=== PATIENT | female | born 1975 | race Caucasian/White ===

== ENCOUNTER → 2016-10-28 | Outpatient (REF) | payer MEDICAID, OTHER ==
[~2016-10-28] MED LIST: ALBU17IN INH; AMOX500T PO; DEPA500T2 PO; NUVAMIS2 VA; ROBISYP3 PO; SERT-138 PO; VENL225T PO
== END ==
LOC: M LAB REF 13:24
PROVIDERS: ATTEND Physician Assistant Medical
DX: Z12.4 Encounter for screening for malignant neoplasm of cervix (principal)

== ENCOUNTER → 2016-11-26 | Outpatient (CLI) | payer MEDICAID ==
--- NOTE | 2016-11-26 15:39 | REPMRS ---
Patient History The patient states she had a clinical breast exam in 10/2016. Patient is nulliparous. Family history of prostate cancer in father at age 50 or over, breast cancer in 2 maternal aunts at age 50 or over, and prostate cancer in paternal uncle at age 50 or over. Taking hormonal contraceptives for 1 month. Digital Woman Screen Mammo: November 26, 2016 - Exam #: [id number] Bilateral CC and MLO view(s) were taken. Technologist: Arpita Carlin, Technologist Prior study comparison: April 08, 2014, bilateral digital mammo screening bilat, performed at [facility], [place]. FINDINGS: The breast tissue is heterogeneously dense. This may lower the sensitivity of mammography. There is a moderate amount of heterogeneously dense fibroglandular tissue which is fairly symmetric. There is no interval development of dominant mass, architectural distortion, or clustered microcalcification typical of malignancy. There has been no change in the appearance of the mammogram from the prior studies. ASSESSMENT: BI-RADS/ACR category 1 mammogram. Negative. Recommendation Routine screening mammogram of both breasts in 1 year (for women over age 40). This mammogram was interpreted with the aid of an FDA-approved computer-aided dectection system. Electronically Signed By: Yovanny Pappas MD 11/26/16 0958
== END ==
LOC: M WHC 08:36
PROVIDERS: ATTEND Physician Assistant Medical
DX: Z12.31 Encounter for screening mammogram for malignant neoplasm of breast (principal); Z92.0 Personal history of contraception

== ENCOUNTER → 2017-05-06 | Outpatient (REF) | payer MEDICAID ==
[2017-05-06 12:37] LABS: BASO % 0.4 % (0.0-1.0); EOS # 0.1 10^3/uL (0.0-0.50); EOS % 1.5 % (0.0-3.0); IMMATURE GRANULOCYTE % 0.3 % (0-0); LYMPH # 2.7 10^3/uL (1.5-4.5); LYMPH % 39.7 % (24.0-44.0); MEAN CORPUSCULAR HEMOGLOBIN 29.8 pg (27.0-33.0); MEAN CORPUSCULAR HGB CONC 31.2 g/dl (32.0-36.5); MEAN CORPUSCULAR VOLUME 95.5 fl (80.0-96.0); MONO # 0.7 10^3/uL (0.0-0.8); MONO % 10.1 % (0.0-5.0); NEUTROPHILS # 3.3 10^3/uL (1.8-7.7); PLATELET COUNT, AUTOMATED 391 10^3/uL (150-450); RED CELL DISTRIBUTION WIDTH 12.8 % (11.5-14.5); WHITE BLOOD COUNT 6.8 10^3/uL (4.0-10.0)
[2017-05-06 13:25] LABS: ERYTHROCYTE SEDIMENTATION RATE 12 mm/hr (0-20)
== END ==
LOC: M LABDRAW1 12:11
PROVIDERS: ATTEND Physician Assistant
DX: M75.42 Impingement syndrome of left shoulder (principal)

== ENCOUNTER 2017-05-21 12:59 | Outpatient (RCR) | payer MEDICAID | END 2017-05-22 | LOC: M PT 12:59 | PROVIDERS: ATTEND Physician Assistant | DX: Z51.89 Encounter for other specified aftercare (principal); M25.511 Pain in right shoulder; M25.512 Pain in left shoulder ==

== ENCOUNTER 2017-05-26 16:02 | Outpatient (RCR) | payer MEDICAID | END 2017-06-22 | LOC: M PT 05-28 16:45 | DX: Z51.89 Encounter for other specified aftercare (principal); M75.41 Impingement syndrome of right shoulder; M75.42 Impingement syndrome of left shoulder; M65.811 Other synovitis and tenosynovitis, right shoulder; M65.812 Other synovitis and tenosynovitis, left shoulder | CPT/HCPCS: 97010 ==

== ENCOUNTER 2017-08-13 09:26 | Outpatient (RCR) | payer MEDICAID | END 2017-08-20 | LOC: M PT 08-19 10:45 | DX: Z51.89 Encounter for other specified aftercare (principal); M25.511 Pain in right shoulder | CPT/HCPCS: 97010 ==

== ENCOUNTER 2017-08-26 12:17 | Outpatient (RCR) | payer MEDICAID | END 2017-09-20 | LOC: M PT 12:17 | DX: Z51.89 Encounter for other specified aftercare (principal); M75.41 Impingement syndrome of right shoulder | CPT/HCPCS: 97010 ==

== ENCOUNTER 2017-09-09 19:41 | Emergency (ER) | payer MEDICAID ==
[2017-09-09 22:53] LABS: BASO # 0.1 10^3/uL (0.0-0.2); BASO % 0.6 % (0.0-1.0); EOS # 0.1 10^3/uL (0.0-0.50); EOS % 0.8 % (0.0-3.0); HEMOGLOBIN 13.2 g/dl (12.0-16.0); IMMATURE GRANULOCYTE % 0.2 % (0-3.0); LYMPH # 3.1 10^3/uL (1.5-4.5); MEAN CORPUSCULAR HEMOGLOBIN 28.8 pg (27.0-33.0); MEAN CORPUSCULAR HGB CONC 32.2 g/dl (32.0-36.5); MEAN CORPUSCULAR VOLUME 89.3 fl (80.0-96.0); MONO # 0.8 10^3/uL (0.0-0.8); MONO % 8.7 % (0.0-5.0); NEUTROPHILS # 4.6 10^3/uL (1.8-7.7); NEUTROPHILS % 53.7 % (36.0-66.0); PLATELET COUNT, AUTOMATED 377 10^3/uL (150-450); RED BLOOD COUNT 4.59 10^6/uL (4.00-5.40); RED CELL DISTRIBUTION WIDTH 12.5 % (11.5-14.5); WHITE BLOOD COUNT 8.6 10^3/uL (4.0-10.0)
[2017-09-09] MEDS: AMPICILLIN SOD/SULBACTAM SOD 3 GM in D5W MINI-BAG PLUS 100 ML IV (23:15)
[2017-09-09] MEDS ORDERED: ISOVUE-370 76% 100ML VIAL (Q9967) As Ordered (23:16)
[2017-09-09 23:19] LABS: LACTIC ACID SEPSIS PROTOCOL 0.8 MMOL/L (0.4-2.0)
[2017-09-09 23:22] LABS: ANION GAP 7 MEQ/L (8-16); BLOOD UREA NITROGEN 8 MG/DL (7-18); C REACTIVE PROTEIN QUANTITATIV 0.65 MG/DL (0.00-0.30); CARBON DIOXIDE LEVEL 28 MEQ/L (21-32); CHLORIDE LEVEL 106 MEQ/L (98-107); CREATININE FOR GFR 0.55 MG/DL (0.55-1.30); GLOMERULAR FILTRATION RATE > 60.0 (>58); GLUCOSE, FASTING 97 MG/DL (70-100); POTASSIUM SERUM 4.2 MEQ/L (3.5-5.1); SODIUM LEVEL 141 MEQ/L (136-145)
== END 2017-09-10 01:10 | disposition home or self-care (01) ==
LOC: M ED 09-10 01:10
DX: K04.7 Periapical abscess without sinus (principal); J01.00 Acute maxillary sinusitis, unspecified; J45.909 Unspecified asthma, uncomplicated; K21.9 Gastro-esophageal reflux disease without esophagitis; Z88.8 Allergy status to other drugs, medicaments and biological substances; Z88.6 Allergy status to analgesic agent; Z88.1 Allergy status to other antibiotic agents; Z88.2 Allergy status to sulfonamides; Z91.040 Latex allergy status; Z79.899 Other long term (current) drug therapy; Z79.2 Long term (current) use of antibiotics
CPT/HCPCS: Q9967

== ENCOUNTER 2017-09-11 15:18 | Day surgery (SDC) | payer MEDICAID ==
[2017-09-11] MEDS ORDERED: PROPOFOL 200 MG/20 ML VIAL As Ordered (15:56)
[2017-09-11] MEDS ORDERED: LIDOCAINE 2% INJ 100 MG/5 ML SDV (FOR ANES.) As Ordered (15:56)
[2017-09-11] MEDS ORDERED: KETOROLAC 60 MG/2 ML VIAL (J1885) As Ordered (15:57)
[2017-09-11] MEDS ORDERED: ONDANSETRON 4MG/2ML VIAL (J2405) As Ordered ×2 (15:57→18:14)
[2017-09-11] MEDS ORDERED: GLYCOPYRROLATE INJ 0.2 MG/ML 2 ML VIAL As Ordered (15:57)
[2017-09-11] MEDS ORDERED: NEOSTIGMINE 10 MG/10 ML VIAL (J2710) As Ordered (15:57)
[2017-09-11] MEDS ORDERED: dexameTHASONE 4 MG/ML 1ML VIAL (J1100) As Ordered (15:57)
[2017-09-11] MEDS ORDERED: ROCURONIUM BROMIDE 50 MG/5 ML VIAL As Ordered (15:57)
[2017-09-11] MEDS ORDERED: fentaNYL 100 MCG/2 ML INJECTION (J3010) As Ordered ×2 (15:58→17:27)
[2017-09-11] MEDS ORDERED: MIDAZOLAM INJ 2 MG/2 ML VIAL (J2250) As Ordered (15:58)
[2017-09-11 16:27] LABS: CONTROL LINE UCG INT CTR LINE PRESENT; URINE PREG TEST NEGATIVE (NEGATIVE)
[2017-09-11] MEDS: UNASYN 1.5 GM VIAL As Ordered (16:49)
[2017-09-11] MEDS: LIDOCAINE 2% W/ EPINEPHRINE 1.7 ML DENTAL INJ As Ordered (16:54)
[2017-09-11] MEDS: CHLORHEXIDINE GLUCONATE 0.12 % 15ML UDC (PERIDEX ORAL RINSE) As Ordered (17:32)
[2017-09-11] MEDS ORDERED: PERCOCET 5MG/325MG TAB As Ordered (18:15)
[2017-09-11] MEDS: ONDANSETRON 4MG/2ML VIAL (J2405) IV (18:20)
[2017-09-11] MEDS: PERCOCET 5MG/325MG TAB PO ×2 (18:20→19:00)
[2017-09-11] MEDS ORDERED: LR 1,000 ML IV (18:30)
[2017-09-11] MEDS ORDERED: fentaNYL 100 MCG/2 ML INJECTION (J3010) IV (18:30)
[2017-09-11] MEDS ORDERED: PERCOCET 5MG/325MG TAB PO (18:30)
== END 2017-09-11 21:37 | disposition home or self-care (01) ==
LOC: M SDC 21:37
DX: J01.00 Acute maxillary sinusitis, unspecified (principal); J32.0 Chronic maxillary sinusitis; K08.3 Retained dental root; J45.909 Unspecified asthma, uncomplicated; I10 Essential (primary) hypertension; R06.09 Other forms of dyspnea; J44.9 Chronic obstructive pulmonary disease, unspecified; G47.33 Obstructive sleep apnea (adult) (pediatric); E03.9 Hypothyroidism, unspecified; G40.909 Epilepsy, unspecified, not intractable, without status epilepticus; Z88.1 Allergy status to other antibiotic agents; Z88.2 Allergy status to sulfonamides; Z88.6 Allergy status to analgesic agent; Z79.899 Other long term (current) drug therapy; Z85.850 Personal history of malignant neoplasm of thyroid
CPT/HCPCS: 31030

== ENCOUNTER 2017-09-24 12:19 | Outpatient (RCR) | payer MEDICAID | END 2017-10-20 | LOC: M PT 12:19 | DX: Z51.89 Encounter for other specified aftercare (principal); M75.41 Impingement syndrome of right shoulder | CPT/HCPCS: 97010 ==

== ENCOUNTER → 2018-01-28 | Outpatient (REF) | payer MEDICAID ==
[2018-01-28 13:41] LABS: AMORPHOUS SEDIMENT SMALL (NEGATIVE); APPEARANCE, URINE CLOUDY (CLEAR); BACTERIA, URINE AUTO NEGATIVE (NEGATIVE); BILIRUBIN, URINE AUTO NEGATIVE (NEGATIVE); BLOOD, URINE BLOOD NEGATIVE (NEGATIVE); COLOR, URINE YELLOW (YELLOW); GLUCOSE, URINE (UA) AUTO NEGATIVE (NEGATIVE); KETONE, URINE AUTO NEGATIVE (NEGATIVE); LEUKOCYTE ESTERASE, URINE AUTO NEGATIVE (NEGATIVE); MUCUS, URINE SMALL (NEGATIVE); NITRITE, URINE AUTO NEGATIVE (NEGATIVE); PROTEIN, URINE AUTO NEGATIVE (NEGATIVE); RBC, URINE AUTO 0 /HPF (0-3); SPECIFIC GRAVITY URINE AUTO 1.013 (1.002-1.035); SQUAMOUS EPITHELIAL CELL UR AU 0 /HPF (0-6); UROBILINOGEN, URINE AUTO 0.2 mg/dL (0.0-2.0); WBC, URINE AUTO 0 /HPF (0-3)
== END ==
LOC: M LAB REF 13:17
DX: N39.0 Urinary tract infection, site not specified (principal)

== ENCOUNTER 2018-07-22 14:30 | Outpatient (RCR) | payer MEDICAID ==
[~2018-07-22 14:30] MED LIST changes: +AUGM875T28 PO; +CLIN150C14 PO; +DEXM1CAP14 PO; +DIFL150T PO; +ESCI20TA PO; +LEVO25TA5 PO; +OXAY1TAB PO
== END 2018-07-23 ==
LOC: M PT 14:30
PROVIDERS: ATTEND Physician Assistant Medical
DX: Z51.89 Encounter for other specified aftercare (principal); M54.6 Pain in thoracic spine

== ENCOUNTER 2018-08-19 15:13 | Outpatient (RCR) | payer MEDICAID | END 2018-08-20 | LOC: M PT 15:13 | PROVIDERS: ATTEND Physician Assistant Medical | DX: Z51.89 Encounter for other specified aftercare (principal); M54.6 Pain in thoracic spine ==

== ENCOUNTER → 2018-08-25 | Outpatient (REF) | payer MEDICAID ==
[2018-08-25 18:36] LABS: BACTERIA, URINE AUTO NEGATIVE (NEGATIVE); RBC, URINE AUTO 0 /HPF (0-3); SQUAMOUS EPITHELIAL CELL UR AU 1 /HPF (0-6); WBC, URINE AUTO 4 /HPF (0-3)
== END ==
LOC: M SMT 17:26
PROVIDERS: ATTEND Specialist
DX: R35.0 Frequency of micturition (principal)

== ENCOUNTER 2018-09-03 13:00 | Outpatient (RCR) | payer MEDICAID | END 2018-09-20 | LOC: M PT 13:00 | PROVIDERS: ATTEND Physician Assistant Medical | DX: Z51.89 Encounter for other specified aftercare (principal); M54.6 Pain in thoracic spine ==

== ENCOUNTER 2019-01-07 22:09 | Emergency (ER) | payer MEDICAID ==
[~2019-01-07] VITALS: Ht 167.6 cm; Wt 86.4 kg
[~2019-01-07 22:09] MED LIST changes: -VENL225T PO; +VENL225T25 PO
[2019-01-07 22:39] LABS: BASO % 0.3 % (0.0-1.0); EOS # 0.1 10^3/uL (0.0-0.50); EOS % 0.9 % (0.0-3.0); HEMATOCRIT 43.3 % (36.0-47.0); HEMOGLOBIN 13.9 g/dl (12.0-15.5); LYMPH # 3.6 10^3/uL (1.5-4.5); LYMPH % 39.4 % (24.0-44.0); MEAN CORPUSCULAR HEMOGLOBIN 29.7 pg (27.0-33.0); MEAN CORPUSCULAR HGB CONC 32.1 g/dl (32.0-36.5); MEAN CORPUSCULAR VOLUME 92.5 fl (80.0-96.0); MONO # 0.8 10^3/uL (0.0-0.8); MONO % 8.6 % (0.0-5.0); NEUTROPHILS # 4.7 10^3/uL (1.8-7.7); NEUTROPHILS % 50.6 % (36.0-66.0); PLATELET COUNT, AUTOMATED 320 10^3/uL (150-450); RED BLOOD COUNT 4.68 10^6/uL (4.00-5.40); WHITE BLOOD COUNT 9.2 10^3/uL (4.0-10.0)
[2019-01-08] MEDS ORDERED: NS 1,000 ML IV SCH (00:23)
[2019-01-08] MEDS ORDERED: ONDANSETRON 4MG/2ML VIAL (J2405) IV ONE (00:30)
[2019-01-08 00:55] LABS: ALBUMIN 3.1 GM/DL (3.2-5.2); ALT/SGPT 22 U/L (12-78); BILIRUBIN,DIRECT < 0.1 MG/DL (0.0-0.2); BILIRUBIN,TOTAL < 0.1 MG/DL (0.2-1.0); BLOOD UREA NITROGEN 16 MG/DL (7-18); CALCIUM LEVEL 8.9 MG/DL (8.5-10.1); CARBON DIOXIDE LEVEL 31 MEQ/L (21-32); CHLORIDE LEVEL 107 MEQ/L (98-107); CK-MB VALUE MASS < 1.0 NG/ML (<3.6); CPK CREATINE PHOSPHOKINASE 64 U/L (26-192); CREATININE FOR GFR 0.64 MG/DL (0.55-1.30); GLOMERULAR FILTRATION RATE > 60.0 (>58); GLUCOSE, FASTING 116 MG/DL (70-100); LIPASE 126 U/L (73-393); MB/CK RELATIVE INDEX 1.56 (< OR =4); POTASSIUM SERUM 4.2 MEQ/L (3.5-5.1); SODIUM LEVEL 144 MEQ/L (136-145); TOTAL PROTEIN 6.7 GM/DL (6.4-8.2); TROPONIN I < 0.02 NG/ML (< 0.10)
[2019-01-08] MEDS ORDERED: ISOVUE-370 76% 100ML VIAL (Q9967) As Ordered ONE (02:21)
[2019-01-08 05:07] LABS: CK-MB VALUE MASS < 1.0 NG/ML (<3.6); CPK CREATINE PHOSPHOKINASE 66 U/L (26-192); MB/CK RELATIVE INDEX 1.52 (< OR =4); TROPONIN I < 0.02 NG/ML (< 0.10)
[2019-01-08] MEDS ORDERED: ZOFR4TAB16 PO (05:47)
--- NOTE | 2019-01-08 06:00 | ECGEPIP ---
[facility] - ED Test Date: 2019-01-07 Pat Name: TREMAINE FLANNERY Department: Room: - Gender: Female Director Of Claims: : 1975 Requested By: LILLY Chan Order Number: [id number] Reading MD: Boo Tang Measurements Intervals [place] Rate: 93 P: 8 OR: 147 QRS: 42 QRSD: 85 T: 29 QT: 340 QTc: 425 Interpretive Statements SINUS RHYTHM NONSPECIFIC T-WAVE ABNORMALITY NO PRIORS FOR COMPARISON Electronically Signed on 01-08-2019 6:00:07 EDT by Boo Tang
[2019-01-08 06:01] VITALS: BP 124/75
--- NOTE | 2019-01-08 06:04 | ECGEPIP ---
[facility] - ED Test Date: 2019-01-08 Pat Name: TREMAINE FLANNERY Department: Room: - Gender: Female Huc Ob: marcos : 1975 Requested By: LILLY Chan Order Number: [id number] Reading MD: Boo Tang Measurements Intervals [place] Rate: 67 P: 14 [place]: 157 QRS: 37 QRSD: 83 T: 36 QT: 395 QTc: 419 Interpretive Statements SINUS RHYTHM NSTTW ABNORMALITIES SIMILAR TO 01/07/19 Electronically Signed on 01-08-2019 6:03:53 EDT by Boo Tang
--- NOTE | 2019-01-08 08:11 | REP ---
Portable chest, 10:52 p.m., single AP view with the patient sitting: Comparison is the PA and lateral chest of 08/25/2015. There is chronic interstitial coarsening compatible with chronic interstitial lung disease. There are no focal infiltrates or pleural effusions. Cardiac size is normal. The mitra, mediastinum, skeletal structures are unremarkable. Impression: Chronic interstitial coarsening. No acute cardiopulmonary findings. Electronically Signed by Jassi Kim MD 01/08/2019 08:02 A
--- NOTE | 2019-01-08 16:12 | REP ---
CT pulmonary angiogram: With IV contrast. History: Pleuritic chest pain. Rule out pulmonary embolus. Repeat dictation. Preliminary report was provided at the time of exam by virtual radiology. Comparison studies: Comparison CT study of the chest is from August 26, 2013. Contrast dose: 100 ML of Isovue [address] technique: Helical scanning is acquired and overlapping 1.5 mm and contiguous 3 mm axial images are reformatted. In addition, maximum intensity projection and multiplanar re-formation images are generated in sagittal and coronal imaging projections. CT pulmonary angiographic findings: There is good opacification of the pulmonary arterial tree. There is no CT evidence of pulmonary embolus. No pleural or significant pericardial effusion is seen. No hilar or mediastinal mass or adenopathy is observed. No infiltrate, nodule or mass lesion is seen in the lung finney. Maximal intensity projection images show no vessel cutoff or filling defect. No bony destructive lesion is seen. Visualized upper abdominal structures are unremarkable. Impression: No CT evidence of pulmonary embolus. No acute disease. Electronically Signed by Andrew Pappas MD 01/08/2019 04:56 P
--- NOTE | 2019-01-08 16:14 | REP ---
CT abdomen and pelvis with IV but without oral contrast: Repeat dictation. History: Left-sided abdominal pain. Preliminary report is provided at the time of exam by virtual radiology. CT contrast dose: 100 ml of intravenous Isovue 370 is administered. Comparison study: March 25, 2018. CT findings: Preliminary digital driver helper radiograph is unremarkable. The lung bases are clear on axial CT images. There is no evidence of pleural effusion or upper abdominal ascites. There is mild diffuse fatty infiltration of the liver. The gallbladder and pancreas are unremarkable. A small sliding-type hiatal hernia is seen. The spleen is normal in size homogeneous in texture. The kidneys enhance symmetrically and are morphologically intact. No adrenal lesion is seen. No retroperitoneal mass or adenopathy is observed. A normal appendix is seen retrocecal. Small and large intestinal bowel loops are unremarkable. There is sigmoid colon diverticulosis. The uterus is surgically absent. Impression: Post hysterectomy. Left colonic diverticulosis. Small sliding-type hiatal hernia. Normal appendix. Mild fatty infiltration of the liver. Electronically Signed by Andrew Pappas MD 01/08/2019 04:56 P
== END 2019-01-08 06:10 | disposition home or self-care (01) ==
LOC: M ED 22:09
DX: R07.9 Chest pain, unspecified (principal); R11.10 Vomiting, unspecified; J45.909 Unspecified asthma, uncomplicated; G40.909 Epilepsy, unspecified, not intractable, without status epilepticus; G47.33 Obstructive sleep apnea (adult) (pediatric); K21.9 Gastro-esophageal reflux disease without esophagitis; N32.81 Overactive bladder; Z79.899 Other long term (current) drug therapy; Z88.1 Allergy status to other antibiotic agents; Z88.2 Allergy status to sulfonamides; Z88.8 Allergy status to other drugs, medicaments and biological substances; Z91.040 Latex allergy status
CPT/HCPCS: 71045; 71275; 74177; 80048; 80076; 82550; 82553; 83690; 85025; 93005; 93041; 94760; 96361; 96374; 99285; J2405; Q9967

== ENCOUNTER → 2019-01-20 | Outpatient (CLI) | payer MEDICAID ==
[~2019-01-20] MED LIST changes: +ZOFR4TAB16 PO
--- NOTE | 2019-01-20 11:41 | REP ---
Clinical: Right ankle pain. Technique: AP, lateral, bilateral oblique views of the right ankle. Findings: Osseous structures, joint spaces, and surrounding soft tissues appear normal. No acute fracture dislocation. Ankle mortise intact. Impression: Normal age-appropriate right ankle radiographs. Electronically Signed by Ortega Irby MD 01/20/2019 11:33 A
== END ==
LOC: M RAD 10:28
PROVIDERS: ATTEND Physician Assistant
DX: M25.571 Pain in right ankle and joints of right foot (principal)

== ENCOUNTER 2019-02-16 09:15 | Outpatient (RCR) | payer MEDICAID ==
[2019-02-17] MEDS ORDERED: ONDA4TAB6 PO (03:58)
== END 2019-02-20 ==
LOC: M PT 09:15
PROVIDERS: ATTEND Physician Assistant
DX: Z47.89 Encounter for other orthopedic aftercare (principal); M25.571 Pain in right ankle and joints of right foot

== ENCOUNTER 2019-02-17 01:07 | Emergency (ER) | payer MEDICAID ==
[~2019-02-17] VITALS: Ht 167.6 cm; Wt 86.4 kg
[2019-02-17] MEDS ORDERED: ISOVUE-370 76% 100ML VIAL (Q9967) As Ordered ONE (01:55)
[2019-02-17] MEDS ORDERED: ONDANSETRON 4MG/2ML VIAL (J2405) IV ONE (02:00)
[2019-02-17] MEDS ORDERED: methylPREDNISolone INJ 40 MG/1 ML VIAL (J2920) IV ONE (02:00)
[2019-02-17] MEDS ORDERED: NS 1,000 ML IV ONE (02:00)
[2019-02-17 02:05] LABS: BASO % 0.4 % (0.0-1.0); EOS # 0.1 10^3/uL (0.0-0.50); EOS % 1.3 % (0.0-3.0); HEMATOCRIT 40.5 % (36.0-47.0); HEMOGLOBIN 13.1 g/dl (12.0-15.5); LYMPH # 2.8 10^3/uL (1.5-4.5); MEAN CORPUSCULAR HEMOGLOBIN 30.3 pg (27.0-33.0); MEAN CORPUSCULAR HGB CONC 32.3 g/dl (32.0-36.5); MEAN CORPUSCULAR VOLUME 93.8 fl (80.0-96.0); MONO % 9.6 % (0.0-5.0); NEUTROPHILS # 6.4 10^3/uL (1.8-7.7); NEUTROPHILS % 61.5 % (36.0-66.0); PLATELET COUNT, AUTOMATED 286 10^3/uL (150-450); RED BLOOD COUNT 4.32 10^6/uL (4.00-5.40); WHITE BLOOD COUNT 10.3 10^3/uL (4.0-10.0)
[2019-02-17 02:33] LABS: ALBUMIN 3.4 GM/DL (3.2-5.2); ALT/SGPT 99 U/L (12-78); BILIRUBIN,DIRECT 0.4 MG/DL (0.0-0.2); BILIRUBIN,TOTAL 0.7 MG/DL (0.2-1.0); CK-MB VALUE MASS 1.4 NG/ML (<3.6); CPK CREATINE PHOSPHOKINASE 162 U/L (26-192); LIPASE 168 U/L (73-393); MB/CK RELATIVE INDEX 0.86 (< OR =4); TOTAL PROTEIN 6.6 GM/DL (6.4-8.2); TROPONIN I < 0.02 NG/ML (< 0.10)
[2019-02-17 03:43] VITALS: BP 123/67
[2019-02-17] MEDS ORDERED: ONDA4TAB6 PO (03:58)
--- NOTE | 2019-02-17 05:44 | ECGEPIP ---
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
--- NOTE | 2019-02-17 12:04 | REP ---
CT of the chest with IV contrast, CT pulmonary angiography protocol: Comparison is 01/08/2019. There are no emboli in the pulmonary trunk or central pulmonary arteries. There are no emboli in the pulmonary artery lobe or segment branches. There are no infiltrates or pleural effusions. There are no masses or nodules. There is no mediastinal, hilar or axillary lymph node enlargement. The thoracic aorta is unremarkable. The cardiac size is normal. There is no pericardial effusion. The visualized upper abdominal contents are unremarkable. Impression: There is no pulmonary embolus. Otherwise, negative CT study of the chest. There is no interval change. Electronically Signed by Jassi Kim MD 02/17/2019 07:48 A
== END 2019-02-17 04:12 | disposition home or self-care (01) ==
LOC: M ED 01:07
DX: R07.89 Other chest pain (principal); K52.9 Noninfective gastroenteritis and colitis, unspecified; Z79.899 Other long term (current) drug therapy; Z88.2 Allergy status to sulfonamides; Z88.8 Allergy status to other drugs, medicaments and biological substances; Z88.1 Allergy status to other antibiotic agents; Z88.6 Allergy status to analgesic agent; Z91.040 Latex allergy status
CPT/HCPCS: 71275; 80047; 80076; 82550; 82553; 83690; 85025; 93005; 93041; 96361; 96374; 96375; 99284; J2405; J2920; Q9967

== ENCOUNTER 2019-02-24 09:21 | Outpatient (RCR) | payer MEDICAID ==
[~2019-02-24 09:21] MED LIST changes: -CETI10TA8 PO; -FLUT11IN INH; -LEVO200T31 PO; -NORC1TAB7 PO; -TIZA2CAP PO; -TRAZ-252 PO; -VENTAER INH; -VITA500045 PO
[2019-03-22] MEDS ORDERED: DEPA500T2 PO (14:25)
[2019-03-22] MEDS ORDERED: TRAZ-252 PO (14:25)
[2019-03-22] MEDS ORDERED: LEVO200T31 PO (14:25)
[2019-03-22] MEDS ORDERED: VENTAER INH (14:25)
[2019-03-22] MEDS ORDERED: FLUT11IN INH (14:25)
[2019-03-22] MEDS ORDERED: VITA500045 PO (14:25)
[2019-03-22] MEDS ORDERED: TIZA2CAP PO (14:25)
[2019-03-22] MEDS ORDERED: CETI10TA8 PO (14:25)
== END 2019-03-22 ==
LOC: M PT 09:21
PROVIDERS: ATTEND Physician Assistant
DX: Z51.89 Encounter for other specified aftercare (principal); M25.571 Pain in right ankle and joints of right foot

== ENCOUNTER → 2019-02-24 | Outpatient (REF) | payer MEDICAID ==
[~2019-02-24] MED LIST changes: +CETI10TA8 PO; +FLUT11IN INH; +LEVO200T31 PO; +NORC1TAB7 PO; +ONDA4TAB6 PO; +TIZA2CAP PO; +TRAZ-252 PO; +VENTAER INH; +VITA500045 PO
== END ==
LOC: M LAB REF 12:49
PROVIDERS: ATTEND Physician Assistant Medical
DX: R35.0 Frequency of micturition (principal)

== ENCOUNTER → 2019-03-09 | Outpatient (CLI) | payer MEDICAID ==
[~2019-03-09] MED LIST changes: +CETI10TA8 PO; +FLUT11IN INH; +LEVO200T31 PO; +TIZA2CAP PO; +TRAZ-252 PO; +VENTAER INH; +VITA500045 PO
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
== END ==
LOC: M PAIN 14:00
PROVIDERS: ATTEND Anesthesiology
DX: G89.29 Other chronic pain (principal); M79.18 Myalgia, other site; M54.6 Pain in thoracic spine; G43.909 Migraine, unspecified, not intractable, without status migrainosus; J45.909 Unspecified asthma, uncomplicated; N32.81 Overactive bladder; E89.0 Postprocedural hypothyroidism; G47.33 Obstructive sleep apnea (adult) (pediatric); G40.909 Epilepsy, unspecified, not intractable, without status epilepticus; F41.9 Anxiety disorder, unspecified; F90.9 Attention-deficit hyperactivity disorder, unspecified type; F31.9 Bipolar disorder, unspecified; F43.10 Post-traumatic stress disorder, unspecified; K76.0 Fatty (change of) liver, not elsewhere classified; N20.0 Calculus of kidney; Z79.899 Other long term (current) drug therapy; Z85.850 Personal history of malignant neoplasm of thyroid; Z90.710 Acquired absence of both cervix and uterus; Z88.1 Allergy status to other antibiotic agents; Z88.2 Allergy status to sulfonamides; Z88.6 Allergy status to analgesic agent; Z88.8 Allergy status to other drugs, medicaments and biological substances; Z91.040 Latex allergy status

== ENCOUNTER 2019-03-29 06:01 | Day surgery (SDC) | payer MEDICAID ==
[~2019-03-29] VITALS: Ht 167.6 cm; Wt 88.0 kg
[~2019-03-29 06:01] MED LIST changes: +AMPICILLIN SOD/SULBACTAM SOD 3 GM in D5W MINI-BAG PLUS 100 ML IV ONE; +LR 1,000 ML IV ONE
[2019-03-29] MEDS ORDERED: BUPIVACAINE HCL 0.25% 30 ML VIAL As Ordered ONE (06:33)
[2019-03-29] MEDS ORDERED: LIDOCAINE 1% SDV INJ 30 ML VIAL As Ordered ONE (06:34)
[2019-03-29] MEDS ORDERED: CONRAY-60 60% 50ML VIAL (Q9961) As Ordered ONE (06:34)
[2019-03-29] MEDS ORDERED: PROPOFOL 200 MG/20 ML VIAL As Ordered ONE (07:00)
[2019-03-29] MEDS ORDERED: LIDOCAINE 2% INJ 100 MG/5 ML SDV (FOR ANES.) As Ordered ONE (07:00)
[2019-03-29] MEDS ORDERED: SUGAMMADEX SODIUM 500 MG/5 ML VIAL (BRIDION) As Ordered ONE (07:02)
[2019-03-29] MEDS ORDERED: dexameTHASONE 4 MG/ML 1ML VIAL (J1100) As Ordered ONE (07:02)
[2019-03-29] MEDS ORDERED: fentaNYL 250 MCG/5 ML INJECTION (J3010) As Ordered ONE (07:02)
[2019-03-29] MEDS ORDERED: MIDAZOLAM INJ 2 MG/2 ML VIAL (J2250) As Ordered ONE (07:02)
[2019-03-29] MEDS ORDERED: ONDANSETRON 4MG/2ML VIAL (J2405) As Ordered ONE ×2 (07:02→10:04)
[2019-03-29] MEDS ORDERED: ROCURONIUM BROMIDE 50 MG/5 ML VIAL As Ordered ONE (07:02)
[2019-03-29] MEDS ORDERED: KETOROLAC 60 MG/2 ML VIAL (J1885) As Ordered ONE (07:02)
[2019-03-29] MEDS ORDERED: NORC1TAB7 PO (07:53)
[2019-03-29] MEDS ORDERED: PHENYLephrine HCL 500 MCG/5 ML (100MCG/ML) SYRINGE (J2370) As Ordered ONE (09:27)
--- NOTE | 2019-03-29 09:31 | REP ---
INTRAOPERATIVE CHOLANGIOGRAM: Three C-ARM views are performed. Contrast is injected into the biliary system status-post laparoscopic cholecystectomy. There is no evidence of intrahepatic or extrahepatic biliary dilatation. Common bile duct demonstrates no evidence of stricture or filling defect. There is free flow of contrast into the duodenum. 52 seconds of fluoroscopy time was utilized. Electronically Signed by Jassi Vickers MD 03/29/2019 11:25 P
[2019-03-29] MEDS ORDERED: fentaNYL 100 MCG/2 ML INJECTION (J3010) As Ordered ONE (10:04)
[2019-03-29] MEDS ORDERED: oxyCODONE 5MG TAB As Ordered ONE ×2 (10:04→10:36)
[2019-03-29] MEDS ORDERED: MEPERIDINE INJ 25 MG/ML VIAL (J2175) As Ordered ONE (10:04)
[2019-03-29] MEDS: oxyCODONE 5MG TAB PO PRN ×2 (10:05→10:35)
[2019-03-29] MEDS: MEPERIDINE INJ 25 MG/ML VIAL (J2175) IV PRN ×2 (10:05→10:10)
[2019-03-29] MEDS ORDERED: METOCLOPRAMIDE INJ 10MG/2ML VIAL (J2765) IV PRN (10:15)
[2019-03-29] MEDS ORDERED: KETOROLAC 30 MG/ML VIAL (J1885) IV PRN (10:15)
[2019-03-29] MEDS ORDERED: LR 1,000 ML IV SCH (10:15)
[2019-03-29] MEDS ORDERED: ONDANSETRON 4MG/2ML VIAL (J2405) IV PRN ×2 (10:15)
[2019-03-29] MEDS ORDERED: NORCO, ANEXSIA 5/325MG TABLET (HYDROcodone/ACETAMINOPHEN) PO PRN ×2 (10:15)
[2019-03-29] MEDS: fentaNYL 100 MCG/2 ML INJECTION (J3010) IV PRN ×4 (10:15→10:30)
--- NOTE | 2019-03-29 13:54 | ROOPDOC ---
[facility] Report Of Operation Report of Operation DATE OF PROCEDURE: 03/29/19 PREPROCEDURE DIAGNOSES: Cholelithiasis, biliary colic, transient abnormality of her LFTs. POSTPROCEDURE DIAGNOSES: Cholelithiasis, chronic cholecystitis. PROCEDURE: Laparoscopic cholecystectomy with intraoperative cholangiogram. SURGEON: Kade Fernandez MD HANDBAG STITCHER: Rolando Santamaria (MSIII) ANESTHESIA: Gen. anesthesia. ESTIMATED BLOOD LOSS: Approximately 30 mL. COMPLICATIONS: None. SPECIMEN: Gallbladder PROCEDURE NOTE: Mildly distended mildly thick-walled gallbladder. There are some stones found at the gallbladder cystic duct junction likewise at the midportion of the cystic duct which was milked out to allow for passage of the cholangiogram catheter. Cholangiogram shows normal-appearing biliary tree to the right and left hepatic. There is some cut off on the left hepatic radicles. There is good flow to the colon bile duct into the duodenum. No evidence of common bile duct stones.. DESCRIPTION OF PROCEDURE: Patient was given a dose Unasyn 3 g IV preoperatively for prophylaxis. She was brought to the operating room, laid supine on the table, compression boots placed for DVT prophylaxis. General endotracheal anesthesia started. Her abdomen then prepped and draped in usual sterile fashion. Surgical timeout was performed prior to starting surgery. Entry into the abdomen done through an incision at the left upper quadrant area. Using direct trocar entry with the kii flex 5 mm optical trocar. This was guided through to the abdominal wall past the peritoneum with visual guidance. CO2 insufflation started to pressure 15 mmHg. On first entry I was underneath the omentum. the trocar was pulled back to get back above the omentum. The area underneath the insertion site was inspected and no injury found. She was then placed in steep reverse Trendelenburg. Her right side was tilted up to further expose the gallbladder. Under direct vision a 5mm umbilical port, 11 mm epigastric port and two 5 mm working ports placed along the right subcostal line. Operative findings: Her liver is noted to be smooth in contour no nodularities or lesions found. Her gallbladder is mildly distended, minimally thick walled that appears chronic without signs of acute inflammation. The fundus of the gallbladder was grasped and the gallbladder was elevated superiorly exposing the neck of the gallbladder. The peritoneum overlying the area was opened up and dissected free both anteriorly and posteriorly to help with retraction of the gallbladder. The hepatocystic triangle was approached and dissected using a [place] and instrument. The cystic duct was identified coming off from the next gallbladder this was circumferentially dissected. The cystic artery was identified in its usual position medially behind a small lymph node of [place]. This was similarly circumferentially dissected off surrounding adipose tissue. We continued posterior dissection proximally at the next gallbladder until a critical view of safety was achieved whereby only the previously identified duct and artery coursing through the neck the gallbladder. At this point a clip was placed at the gallbladder-cystic duct junction and a partial cystotomy at the top of the cystic duct. I first attempted to thread the cholangiogram catheter through the cystotomy but was getting some resistance. I palpated at the mid and distal cystic duct and was able to be milked out a small cystic duct stone with good reflux back of bile out of the cystotomy. I was unable to place the cholangiogram catheter, inflated the balloon and test the placement without any leakage of saline. The abdomen was deflated. She was placed on the mild Trendelenburg position with the right side tilted slightly downwards. The fluoroscopic C-arm was positioned in place. Under fluoroscopic view, I performed a cholangiogram. The biliary tree was identified and opacified. It is a normal course and caliber. No strictures or filling defects were found. The contrast went through the duodenum. This ended the cholangiogram. The C-arm was then removed from the field. The abdomen was then insufflated and she was positioned in the usual reverse Trendelenburg position. Cholangiogram shows an intact biliary tree without any signs of dilation. The contrast went through reflux back to the hepatic radicles on both the left and right side and through to the common bile duct opacifying the duodenal sweep. There is no evidence of any strictures, abnormal dilatation, common bile duct stones. After again checking her anatomy and verifying that the previously identified cystic duct, this was also clipped 4 times and divided. The rest of the gallbladder was then dissected free of the gallbladder bed using Bovie cautery. I had some spillage of bile at the upper part of the gallbladder with retraction. This was controlledd, tnad the spilled bile was suctioned out. There was minimal bleeding at the lateral gallbladder attachments to the liver capsule this was easily controlled with Bovie cautery. The gallbladder was then placed in an Endo Catch bag and retrieved outside through the epigastric port site. Under insufflation and inspected the clips and noted this to be in place. No further bleeding noted. No bile leakage noted. There was a small tear at the capsule on the right side of the liver which was not bleeding. The abdomen was insufflated all ports were removed. The epigastric fascial defect repaired with 0 Vicryl in a mattress fashion with a Pradip Natalya device. . Rest of the skin incisions closed with 4-0 Monocryl in subcuticular fashion. Steri-Strips and gauze dressings were placed, the wound. Patient was informed they awakened, extubated and brought to recovery room stable KADE FERNANDEZ MD Mar 29, 2019 13:54
[2019-03-29 18:00] VITALS: BP 119/76
== END 2019-03-29 18:15 | disposition home or self-care (01) ==
LOC: M SDC 06:01
PROVIDERS: ATTEND Surgery
DX: K80.10 Calculus of gallbladder with chronic cholecystitis without obstruction (principal); R07.9 Chest pain, unspecified; E03.9 Hypothyroidism, unspecified; K21.9 Gastro-esophageal reflux disease without esophagitis; J44.9 Chronic obstructive pulmonary disease, unspecified; F32.9 Major depressive disorder, single episode, unspecified; Z91.040 Latex allergy status; Z88.8 Allergy status to other drugs, medicaments and biological substances; Z88.2 Allergy status to sulfonamides; Z79.899 Other long term (current) drug therapy; Z92.3 Personal history of irradiation; Z85.850 Personal history of malignant neoplasm of thyroid; Z85.41 Personal history of malignant neoplasm of cervix uteri
CPT/HCPCS: 47563; 76000; 88304; J1100; J2175; J2250; J2370; J2405; J3010; Q9961

== ENCOUNTER → 2019-05-05 | Outpatient (CLI) | payer MEDICAID ==
[~2019-05-05] MED LIST changes: -AMPICILLIN SOD/SULBACTAM SOD 3 GM in D5W MINI-BAG PLUS 100 ML IV ONE; -LR 1,000 ML IV ONE; +NORC1TAB7 PO
--- NOTE | 2019-05-05 16:37 | REPMRS ---
Patient History The patient states she has not had a clinical breast exam in over a year. Patient is postmenopausal, has history of thyroid cancer at age 39, and is nulliparous. Family history of breast cancer at age 50 or over in maternal aunt, breast cancer at age 50 or over in maternal aunt, prostate cancer at age 50 or over in father, prostate cancer at age 50 or over in paternal uncle. Took hormonal contraceptives for 26 years. Digital Woman Screen Mammo: May 05, 2019 - Exam #: [id number] Bilateral CC and MLO view(s) were taken. Technologist: Kamini Lovell, Technologist Prior study comparison: November 26, 2016, digital woman screen mammo performed at [facility]. April 08, 2014, bilateral digital mammo screening bilat, performed at [facility]. FINDINGS: The breast tissue is heterogeneously dense. This may lower the sensitivity of mammography. There is a moderate amount of heterogeneously dense fibroglandular tissue which is fairly symmetric. There is no interval development of dominant mass, architectural distortion, or grouped microcalcification typical of malignancy. There has been no change in the appearance of the mammogram from the prior studies. 3-D tomosynthesis shows no additional findings. Assessment: BI-RADS/ACR category 1 mammogram. Negative Mammogram. Recommendation Routine screening mammogram of both breasts in 1 year (for women over age 40). This patient's Lifetime Breast Cancer RIsk is estimated at 13.7 %. This mammogram was interpreted with the aid of an FDA-approved computer-aided dectection system. Electronically Signed By: Yovanny Pappas MD 05/05/19 [id number]
== END ==
LOC: M WHC 12:58
PROVIDERS: ATTEND Physician Assistant
DX: Z12.31 Encounter for screening mammogram for malignant neoplasm of breast (principal)

== ENCOUNTER 2019-07-25 13:32 | Emergency (ER) | payer MEDICAID ==
[~2019-07-25] VITALS: Ht 167.6 cm; Wt 88.9 kg
[2019-07-25] MEDS ORDERED: LEVO150T42 PO (13:40)
[2019-07-25 14:42] LABS: BASO # 0.1 10^3/uL (0.0-0.2); BASO % 0.6 % (0.0-1.0); EOS # 0.1 10^3/uL (0.0-0.5); EOS % 1.3 % (0.0-3.0); HEMATOCRIT 44.2 % (36.0-47.0); HEMOGLOBIN 13.7 g/dl (12.0-15.5); LYMPH # 3.8 10^3/uL (1.5-5.0); MEAN CORPUSCULAR HEMOGLOBIN 28.5 pg (27.0-33.0); MEAN CORPUSCULAR VOLUME 92.1 fl (80.0-96.0); MONO # 0.8 10^3/uL (0.0-0.8); NEUTROPHILS # 3.6 10^3/uL (1.5-8.5); PLATELET COUNT, AUTOMATED 322 10^3/uL (150-450); WHITE BLOOD COUNT 8.3 10^3/uL (4.0-10.0)
[2019-07-25] MEDS ORDERED: ISOVUE-370 76% 100ML VIAL (Q9967) As Ordered ONE (14:59)
[2019-07-25 15:07] LABS: ALBUMIN 3.6 GM/DL (3.2-5.2); ALT/SGPT 20 U/L (12-78); BILIRUBIN,DIRECT < 0.1 MG/DL (0.0-0.2); BILIRUBIN,TOTAL 0.2 MG/DL (0.2-1.0); LIPASE 100 U/L (73-393); TOTAL PROTEIN 7.1 GM/DL (6.4-8.2)
--- NOTE | 2019-07-25 15:35 | REP ---
CT of the abdomen pelvis with IV contrast, without bowel contrast for right lower quadrant abdominal pain: Comparison is 01/08/2019. The the patient has a cholecystectomy and hysterectomy. The visualized lung finney are unremarkable. The hepatic parenchyma, pancreas, spleen, adrenals and kidneys are unremarkable. The abdominal aorta is unremarkable. There is no periaortic adenopathy or mass. There is no mesenteric adenopathy or ascites. There is no bowel distension or obstruction. Pelvis: The appendix is unremarkable. The vaginal cuff and adnexa are unremarkable. The bladder is unremarkable. There is no adenopathy or ascites. There is descending colon and sigmoid colon diverticulosis without diverticulitis. Impression: Cholecystectomy and hysterectomy. Diverticulosis without diverticulitis. The appendix has a normal appearance. There is no mesenteric adenopathy or ascites. Electronically Signed by Jassi Kim MD 07/25/2019 03:26 P
[2019-07-25 16:15] VITALS: BP 121/78
== END 2019-07-25 16:27 | disposition home or self-care (01) ==
LOC: M ED 13:32
DX: R10.31 Right lower quadrant pain (principal); J44.9 Chronic obstructive pulmonary disease, unspecified; K57.30 Diverticulosis of large intestine without perforation or abscess without bleeding; E03.9 Hypothyroidism, unspecified; Z79.82 Long term (current) use of aspirin; Z88.2 Allergy status to sulfonamides; Z88.8 Allergy status to other drugs, medicaments and biological substances; Z91.040 Latex allergy status
CPT/HCPCS: 36415; 74177; 80047; 80076; 81001; 83690; 84702; 85025; 87086; 99284; Q9967

== ENCOUNTER → 2019-09-04 | Outpatient (REF) | payer MEDICAID ==
[~2019-09-04] MED LIST changes: +LEVO150T42 PO
== END ==
LOC: M SFHCLERA 14:26
PROVIDERS: ATTEND Nurse Practitioner Family
DX: J02.9 Acute pharyngitis, unspecified (principal)

== ENCOUNTER → 2019-09-18 | Outpatient (CLI) | payer MEDICAID ==
--- NOTE | 2019-09-18 18:25 | REP ---
Clinical: Worsening chronic cough . Comparison: 01/07/2019 of the . Technique: PA and lateral. Findings: The mediastinum and cardiac silhouette are normal. The lung finney demonstrate chronic interstitial changes without acute consolidation, effusion, or pneumothorax. The skeletal structures demonstrate osteopenia to the vertebral bodies. Impression: 1. No acute cardiopulmonary process. Electronically Signed by Ortega Irby MD 09/18/2019 06:17 P
== END ==
LOC: M LRY 17:59
PROVIDERS: ATTEND Physician Assistant
DX: R52 Pain, unspecified (principal)

== ENCOUNTER 2019-12-03 17:05 | Emergency (ER) | payer MEDICAID ==
[~2019-12-03] VITALS: Ht 170.2 cm; Wt 86.4 kg
[2019-12-03 19:05] LABS: BASO % 0.5 % (0.0-1.0); EOS # 0.1 10^3/uL (0.0-0.5); EOS % 0.6 % (0.0-3.0); HEMOGLOBIN 13.3 g/dl (12.0-15.5); LYMPH # 2.7 10^3/uL (1.5-5.0); LYMPH % 31.7 % (24.0-44.0); MEAN CORPUSCULAR HEMOGLOBIN 29.4 pg (27.0-33.0); MEAN CORPUSCULAR HGB CONC 31.7 g/dl (32.0-36.5); MEAN CORPUSCULAR VOLUME 92.7 fl (80.0-96.0); MONO # 0.7 10^3/uL (0.0-0.8); MONO % 8.6 % (0.0-5.0); NEUTROPHILS % 58.4 % (36.0-66.0); PLATELET COUNT, AUTOMATED 285 10^3/uL (150-450); RED BLOOD COUNT 4.53 10^6/uL (4.00-5.40); WHITE BLOOD COUNT 8.6 10^3/uL (4.0-10.0)
[2019-12-03 19:13] LABS: INR 0.93; PROTHROMBIN TIME 12.2 SECONDS (11.8-14.0)
[2019-12-03 19:14] LABS: PARTIAL THROMBOPLASTIN TIME 28.1 SECONDS (25.0-38.4)
--- NOTE | 2019-12-03 19:26 | REP ---
Single view chest: 12/03/2019. Indication: Chest pain. Comparison: 09/18/2019. Findings: The lungs are clear. There is no pleural effusion or pneumothorax. Chronic interstitial changes are redemonstrated. The cardiac silhouette is not enlarged. Impression: Clear lungs. Electronically Signed by Mervin Murillo DO 12/03/2019 07:18 P
[2019-12-03 19:35] LABS: ALBUMIN 3.5 GM/DL (3.2-5.2); ALT/SGPT 21 U/L (12-78); BILIRUBIN,DIRECT < 0.1 MG/DL (0.0-0.2); BILIRUBIN,TOTAL 0.3 MG/DL (0.2-1.0); CK-MB VALUE MASS < 1.0 NG/ML (<3.6); CPK CREATINE PHOSPHOKINASE 128 U/L (26-192); FREE T4 1.35 NG/DL (0.76-1.46); LIPASE 101 U/L (73-393); MB/CK RELATIVE INDEX 0.78 (< OR =4); TOTAL PROTEIN 7.3 GM/DL (6.4-8.2); TROPONIN I < 0.02 NG/ML (< 0.10)
--- NOTE | 2019-12-03 20:19 | ECGEPIP ---
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
[2019-12-03 22:40] LABS: CK-MB VALUE MASS < 1.0 NG/ML (<3.6); CPK CREATINE PHOSPHOKINASE 117 U/L (26-192); MB/CK RELATIVE INDEX 0.85 (< OR =4); TROPONIN I < 0.02 NG/ML (< 0.10)
[2019-12-03 23:15] VITALS: BP 143/82
--- NOTE | 2019-12-05 15:56 | ECGEPIP ---
[facility] - ED Test Date: 2019-12-03 Pat Name: TREMAINE FLANNERY Department: Room: - Gender: Female Manager Agriculture: kamari : 1975 Requested By: Kem Evans Order Number: [id number] Reading MD: Darcy Alan Measurements Intervals [place] Rate: 84 P: 5 VA: 124 QRS: 25 QRSD: 87 T: 20 QT: 350 QTc: 414 Interpretive Statements SINUS RHYTHM NONSPECIFIC T-WAVE ABNORMALITY DECREASED RATE 12/03/19 Electronically Signed on 12-05-2019 15:56:05 EDT by Darcy Alan
== END 2019-12-03 23:54 | disposition home or self-care (01) ==
LOC: M ED 17:05 → EDBD 17:05 → M ED 23:54
DX: J68.9 Unspecified respiratory condition due to chemicals, gases, fumes and vapors (principal); R06.02 Shortness of breath; R07.9 Chest pain, unspecified; J44.9 Chronic obstructive pulmonary disease, unspecified; J45.909 Unspecified asthma, uncomplicated; G47.30 Sleep apnea, unspecified; Z79.899 Other long term (current) drug therapy; Z88.1 Allergy status to other antibiotic agents; Z88.2 Allergy status to sulfonamides; Z88.8 Allergy status to other drugs, medicaments and biological substances; Z91.040 Latex allergy status

== ENCOUNTER 2020-03-05 21:38 | Emergency (ER) | payer OTHER, MEDICAID ==
[~2020-03-05] VITALS: Ht 167.6 cm; Wt 91.4 kg
[2020-03-05 21:39] VITALS: BP 141/88
[2020-03-05] MEDS ORDERED: FOCA15CA PO (21:44)
[2020-03-05 23:01] LABS: BASO # 0.1 10^3/uL (0.0-0.2); BASO % 0.5 % (0.0-1.0); EOS # 0.1 10^3/uL (0.0-0.5); EOS % 1.3 % (0.0-3.0); HEMATOCRIT 42.7 % (36.0-47.0); HEMOGLOBIN 13.9 g/dl (12.0-15.5); LYMPH # 4.7 10^3/uL (1.5-5.0); LYMPH % 48.3 % (24.0-44.0); MEAN CORPUSCULAR HGB CONC 32.6 g/dl (32.0-36.5); MONO # 0.8 10^3/uL (0.0-0.8); MONO % 8.6 % (0.0-5.0); NEUTROPHILS % 41.1 % (36.0-66.0); PLATELET COUNT, AUTOMATED 334 10^3/uL (150-450); RED BLOOD COUNT 4.64 10^6/uL (4.00-5.40); WHITE BLOOD COUNT 9.6 10^3/uL (4.0-10.0)
--- NOTE | 2020-03-05 23:11 | REPVR ---
PROCEDURE INFORMATION: Exam: CT Head Without Contrast Exam date and time: 03/05/2020 10:55 PM Age: 44 years old Clinical indication: Injury or trauma; Fall; Initial encounter; Concussion / head injury TECHNIQUE: Imaging protocol: Computed tomography of the head without contrast. Radiation optimization: All CT scans at this facility use at least one of these dose optimization techniques: automated exposure control; mA and/or kV adjustment per patient size (includes targeted exams where dose is matched to clinical indication); or iterative reconstruction. COMPARISON: No relevant prior studies available. FINDINGS: Brain: Normal. No hemorrhage. Unremarkable white matter. No mass effect. Ventricles: No ventriculomegaly. Bones/joints: Unremarkable. No acute fracture. Paranasal sinuses: Visualized sinuses are unremarkable. No fluid levels. Mastoid air cells: Visualized mastoid air cells are well aerated. Soft tissues: Unremarkable. IMPRESSION: No acute intracranial abnormality. Electronically signed by: Justin Troy On 03/05/2020 23:11:06 PM
--- NOTE | 2020-03-05 23:14 | REPVR ---
PROCEDURE INFORMATION: Exam: CT Cervical Spine Without Contrast Exam date and time: 03/05/2020 10:55 PM Age: 44 years old Clinical indication: Injury or trauma; Fall; Initial encounter; Blunt trauma TECHNIQUE: Imaging protocol: Computed tomography images of the cervical spine without contrast. Radiation optimization: All CT scans at this facility use at least one of these dose optimization techniques: automated exposure control; mA and/or kV adjustment per patient size (includes targeted exams where dose is matched to clinical indication); or iterative reconstruction. COMPARISON: CT Neck with contrast 2017-09-09 23:24 FINDINGS: Vertebrae: Normal spinal curvature, vertebral body heights, and alignment. No spinal fracture or acute subluxation. Discs/Spinal canal/Neural foramina: No significant disc protrusion. No severe spinal canal stenosis. No significant neural foraminal narrowing. Soft tissues: Unremarkable. Lungs: Lung apices are normal. IMPRESSION: No acute vertebral fracture/subluxation. Electronically signed by: Justin Troy On 03/05/2020 23:14:01 PM
[2020-03-05 23:34] LABS: ALBUMIN 3.7 GM/DL (3.2-5.2); ALT/SGPT 25 U/L (12-78); BILIRUBIN,DIRECT < 0.1 MG/DL (0.0-0.2); BILIRUBIN,TOTAL 0.3 MG/DL (0.2-1.0); BLOOD UREA NITROGEN 12 MG/DL (7-18); CALCIUM LEVEL 9.6 MG/DL (8.5-10.1); CARBON DIOXIDE LEVEL 29 MEQ/L (21-32); CHLORIDE LEVEL 107 MEQ/L (98-107); CK-MB VALUE MASS < 1.0 NG/ML (<3.6); CPK CREATINE PHOSPHOKINASE 133 U/L (26-192); CREATININE FOR GFR 0.73 MG/DL (0.55-1.30); FREE T4 1.15 NG/DL (0.76-1.46); GLOMERULAR FILTRATION RATE > 60.0 (>58); GLUCOSE, FASTING 113 MG/DL (70-100); MB/CK RELATIVE INDEX 0.75 (< OR =4); POTASSIUM SERUM 4.3 MEQ/L (3.5-5.1); SODIUM LEVEL 139 MEQ/L (136-145); TOTAL PROTEIN 7.3 GM/DL (6.4-8.2); TROPONIN I < 0.02 NG/ML (< 0.10)
--- NOTE | 2020-03-10 11:24 | ECGEPIP ---
[facility] - ED Test Date: 2020-03-05 Pat Name: TREMAINE FLANNERY Department: Room: - Gender: Female Communications Scientist: jaret : 1975 Requested By: LILLY Chan Order Number: [id number] Reading MD: Darcy Alan Measurements Intervals [place] Rate: 79 P: 10 CO: 124 QRS: 34 QRSD: 90 T: 29 QT: 373 QTc: 429 Interpretive Statements SINUS RHYTHM NONSPECIFIC T-WAVE ABNORMALITY BORDERLINE ECG SEE SCANNED DOWNTIME REPORT
--- NOTE | 2020-03-24 14:21 | REP ---
CT THORACIC SPINE WITHOUT CONTRAST (REPEAT DICTATION) HISTORY: Trauma. Preliminary report is provided at the time of exam by [facility]. FINDINGS: Thoracic vertebral body heights are preserved. Alignment is intact. There is minimal S-shaped curvature. No fracture or collapse is seen. Pedicles and posterior elements are intact. The posterior ribs visualized are intact. No abnormality noted in the visualized lung finney. There is a small siding-type hiatal hernia. There are clips in the right upper quadrant consistent with previous cholecystectomy. IMPRESSION: No fracture or collapse seen. MTDD
--- NOTE | 2020-03-24 14:22 | REP ---
CT LUMBAR SPINE WITHOUT CONTRAST HISTORY: Trauma. Preliminary report is provided at the time of the exam by JULIENNE. FINDINGS: Lumbar vertebral body heights are preserved. Alignment is normal. There is no evidence of fracture or collapse. No evidence of spondylolysis or spondylolisthesis. There is a bone island in the left side of the L2 vertebral body. This measures approximately 9 mm in diameter. No bony destructive lesion is seen. Paravertebral and prevertebral soft tissues are unremarkable. IMPRESSION: No traumatic abnormality noted. No acute disease. MTDD
== END 2020-03-06 00:10 | disposition home or self-care (01) ==
LOC: M ED 21:38
DX: S09.90XA Unspecified injury of head, initial encounter (principal); W01.0XXA Fall on same level from slipping, tripping and stumbling without subsequent striking against object, initial encounter; Y92.89 Other specified places as the place of occurrence of the external cause; Y99.0 Civilian activity done for income or pay; M54.9 Dorsalgia, unspecified; J45.909 Unspecified asthma, uncomplicated; F33.9 Major depressive disorder, recurrent, unspecified; F41.9 Anxiety disorder, unspecified; F43.10 Post-traumatic stress disorder, unspecified; G47.33 Obstructive sleep apnea (adult) (pediatric); M19.90 Unspecified osteoarthritis, unspecified site; Z79.899 Other long term (current) drug therapy; Z88.1 Allergy status to other antibiotic agents; Z88.2 Allergy status to sulfonamides; Z88.8 Allergy status to other drugs, medicaments and biological substances; Z91.040 Latex allergy status

== ENCOUNTER 2020-03-21 12:10 | Outpatient (RCR) | payer OTHER, MEDICAID ==
[~2020-03-21 12:10] MED LIST changes: +FOCA15CA PO
== END 2020-03-22 ==
LOC: M PT 12:10
PROVIDERS: ATTEND Nurse Practitioner Family
DX: S06.0X0S Concussion without loss of consciousness, sequela (principal); X58.XXXS Exposure to other specified factors, sequela; Y92.9 Unspecified place or not applicable
CPT/HCPCS: 97010; 97110; 97140; 97162; G0283

== ENCOUNTER 2020-03-27 23:36 | Emergency (ER) | payer MEDICAID, OTHER ==
[~2020-03-27] VITALS: Ht 167.6 cm; Wt 90.7 kg
[2020-03-27] MEDS ORDERED: DIVA500T9 (23:48)
[2020-03-28] MEDS ORDERED: FOCA15CA PO (00:56)
[2020-03-28] MEDS ORDERED: ONDA-83 PO (00:56)
[2020-03-28] MEDS ORDERED: LEXA1TAB2 PO (00:56)
[2020-03-28] MEDS ORDERED: PROAAER10 INH (00:56)
[2020-03-28] MEDS ORDERED: OMEP1CAP73 PO (00:56)
[2020-03-28] MEDS ORDERED: TIZA2TAB6 PO (00:56)
[2020-03-28] MEDS ORDERED: DIVA500T9 PO (00:56)
[2020-03-28] MEDS ORDERED: SYMB16INH INH (00:56)
[2020-03-28] MEDS ORDERED: SYNT150T PO (00:56)
[2020-03-28] MEDS ORDERED: ONDANSETRON 4 MG ORAL DISINTEGRATING TAB PO ONE (01:00)
[2020-03-28 04:12] VITALS: BP 138/79
== END 2020-03-28 04:13 | disposition home or self-care (01) ==
LOC: M ED 23:36
DX: F43.0 Acute stress reaction (principal); Z63.0 Problems in relationship with spouse or partner; Z79.51 Long term (current) use of inhaled steroids; Z79.899 Other long term (current) drug therapy; Z88.6 Allergy status to analgesic agent; Z88.1 Allergy status to other antibiotic agents; Z88.2 Allergy status to sulfonamides; Z88.8 Allergy status to other drugs, medicaments and biological substances; Z91.040 Latex allergy status
CPT/HCPCS: 99284; Q0162

== ENCOUNTER 2020-04-11 12:58 | Outpatient (RCR) | payer OTHER, MEDICAID ==
[~2020-04-11 12:58] MED LIST changes: +DIVA500T9; +DIVA500T9 PO; +LEXA1TAB2 PO; +OMEP1CAP73 PO; +ONDA-83 PO; +PROAAER10 INH; +SYMB16INH INH; +SYNT150T PO; +TIZA2TAB6 PO
== END 2020-04-22 ==
LOC: M PT 12:58
PROVIDERS: ATTEND Nurse Practitioner Family
DX: S06.0X0S Concussion without loss of consciousness, sequela (principal)

== ENCOUNTER → 2020-05-16 | Outpatient (CLI) | payer SELFPAY | LOC: M LABSMTC 09:51 | PROVIDERS: ATTEND Pediatrics | DX: Z20.828 Contact with and (suspected) exposure to other viral communicable diseases (principal) ==

== ENCOUNTER 2020-12-31 13:49 | Emergency (ER) | payer MEDICAID, SELFPAY ==
[~2020-12-31] VITALS: Ht 167.6 cm; Wt 86.4 kg
[~2020-12-31 13:49] MED LIST changes: -CLIN150C14 PO; +CLIN150C15 PO; -ESCI20TA PO; +ESCI20TA16 PO; +TIZA1TAB12 PO; -TIZA2TAB6 PO
[2020-12-31] MEDS ORDERED: CLON0.5T2 (14:05)
[2020-12-31] MEDS ORDERED: PRAZ1CAP (14:05)
[2020-12-31 15:54] VITALS: BP 130/70
--- NOTE | 2021-01-01 21:19 | ECGEPIP ---
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
== END 2020-12-31 16:54 | disposition home or self-care (01) ==
LOC: M ED 13:49 → EDBD 13:49 → M ED 16:54
DX: R42 Dizziness and giddiness (principal); Z77.098 Contact with and (suspected) exposure to other hazardous, chiefly nonmedicinal, chemicals; J44.9 Chronic obstructive pulmonary disease, unspecified; Z79.899 Other long term (current) drug therapy; Z88.1 Allergy status to other antibiotic agents; Z88.2 Allergy status to sulfonamides; Z88.8 Allergy status to other drugs, medicaments and biological substances; Z91.040 Latex allergy status

== ENCOUNTER 2021-01-12 17:18 | Emergency (ER) | payer MEDICAID ==
[~2021-01-12] VITALS: Ht 167.6 cm; Wt 86.4 kg
[~2021-01-12 17:18] MED LIST changes: +CLON0.5T2; +PRAZ1CAP PO
[2021-01-12 17:31] VITALS: BP 156/95
[2021-01-12] MEDS ORDERED: HYDR-643 PO (17:31)
== END 2021-01-12 20:21 | disposition home or self-care (01) ==
LOC: M ED 17:18
DX: F41.9 Anxiety disorder, unspecified (principal); J44.9 Chronic obstructive pulmonary disease, unspecified; G40.909 Epilepsy, unspecified, not intractable, without status epilepticus; G43.909 Migraine, unspecified, not intractable, without status migrainosus; G47.33 Obstructive sleep apnea (adult) (pediatric); K21.9 Gastro-esophageal reflux disease without esophagitis; Z88.1 Allergy status to other antibiotic agents; Z88.2 Allergy status to sulfonamides; Z88.8 Allergy status to other drugs, medicaments and biological substances; Z91.040 Latex allergy status; Z79.899 Other long term (current) drug therapy; Z79.890 Hormone replacement therapy

== ENCOUNTER → 2021-01-17 | Outpatient (REF) | payer MEDICAID ==
[~2021-01-17] MED LIST changes: +HYDR-643 PO
== END ==
LOC: M LAB REF 17:09
PROVIDERS: ATTEND Nurse Practitioner Family
DX: N39.0 Urinary tract infection, site not specified (principal)

== ENCOUNTER 2021-01-26 22:05 | Emergency (ER) | payer MEDICAID ==
[~2021-01-26] VITALS: Ht 167.6 cm; Wt 86.2 kg
[~2021-01-26 22:05] MED LIST changes: -CLIN150C15 PO; +CLIN150C17 PO
[2021-01-26] MEDS ORDERED: CIPR-249 PO (22:13)
[2021-01-26] MEDS ORDERED: KLON0.5T PO (22:13)
[2021-01-27 06:45] VITALS: BP 122/73
--- NOTE | 2021-01-29 09:03 | REP ---
INDICATION: recurrent UTIs. Repeat dictation. Preliminary report is provided at the time of the exam by [employer]. COMPARISON: Comparison CT study abdomen and pelvis July 25, 2019.. TECHNIQUE: Urinary tract sonography. FINDINGS: Scanning at the level of the urinary bladder shows no abnormality. The bladder is largely empty at the time of scanning. Renal cortical echogenicity pattern is normal bilaterally and contours are smooth. There is no evidence of hydronephrosis, cyst, mass, or calculus in either kidney. The right kidney measures 10.4 x 4.6 x 4.9 cm. Left renal dimensions are 10.3 x 4.4 x 5.4 cm. IMPRESSION: Normal urinary tract sonography. <Electronically signed by Yovanny Pappas > 01/29/21 [id number]
== END 2021-01-27 07:28 | disposition home or self-care (01) ==
LOC: M ED 22:05
DX: N39.0 Urinary tract infection, site not specified (principal); J45.909 Unspecified asthma, uncomplicated; F31.9 Bipolar disorder, unspecified; F41.9 Anxiety disorder, unspecified; G40.909 Epilepsy, unspecified, not intractable, without status epilepticus; G47.33 Obstructive sleep apnea (adult) (pediatric); K21.9 Gastro-esophageal reflux disease without esophagitis; Z87.442 Personal history of urinary calculi; Z79.899 Other long term (current) drug therapy; Z88.1 Allergy status to other antibiotic agents; Z88.2 Allergy status to sulfonamides; Z88.8 Allergy status to other drugs, medicaments and biological substances; Z91.040 Latex allergy status

== ENCOUNTER → 2021-12-03 | Outpatient (CLI) | payer MEDICAID ==
[~2021-12-03] MED LIST changes: +CETI-25 PO; -CETI10TA8 PO; +CIPR-249 PO; +KLON0.5T PO
== END ==
LOC: M WHC 08:32
PROVIDERS: ATTEND Obstetrics & Gynecology
DX: Z12.31 Encounter for screening mammogram for malignant neoplasm of breast (principal)

== ENCOUNTER 2021-12-12 17:10 | Emergency (ER) | payer MEDICAID ==
[~2021-12-12] VITALS: Ht 167.6 cm; Wt 92.0 kg
[~2021-12-12 17:10] MED LIST changes: -AMPH1CAP14 PO; -ERGO500029; -MYRB50TA; -SERT50TA29
[2021-12-12] MEDS ORDERED: AMPH1CAP14 PO (17:29)
[2021-12-12] MEDS ORDERED: MYRB50TA (17:29)
[2021-12-12] MEDS ORDERED: SERT50TA29 (17:29)
[2021-12-12] MEDS ORDERED: ERGO500029 (17:29)
[2021-12-12] MEDS ORDERED: ONDANSETRON 4MG/2ML VIAL IV ONE (19:20)
[2021-12-12] MEDS ORDERED: ACETAMINOPHEN 500 MG TAB PO ONE (19:20)
[2021-12-12] MEDS ORDERED: NS 1,000 ML IV ONE (19:20)
[2021-12-12 20:26] LABS: BASO # 0.1 10^3/uL (0.0-0.2); BASO % 0.7 % (0.0-1.0); EOS # 0.1 10^3/uL (0.0-0.5); EOS % 1.3 % (0.0-3.0); HEMATOCRIT 44.4 % (36.0-47.0); HEMOGLOBIN 14.1 g/dl (12.0-15.5); LYMPH # 3.8 10^3/uL (1.5-5.0); LYMPH % 41.4 % (24.0-44.0); MEAN CORPUSCULAR HEMOGLOBIN 29.9 pg (27.0-33.0); MEAN CORPUSCULAR HGB CONC 31.8 g/dl (32.0-36.5); MEAN CORPUSCULAR VOLUME 94.3 fl (80.0-96.0); MONO # 0.7 10^3/uL (0.0-0.8); MONO % 7.5 % (2.0-8.0); NEUTROPHILS # 4.5 10^3/uL (1.5-8.5); NEUTROPHILS % 48.9 % (36.0-66.0); PLATELET COUNT, AUTOMATED 382 10^3/uL (150-450); RED BLOOD COUNT 4.71 10^6/uL (4.00-5.40); WHITE BLOOD COUNT 9.2 10^3/uL (4.0-10.0)
[2021-12-12 20:58] LABS: FREE THYROXINE INDEX 3.7 % (1.3-4.8); THYROID STIMULATING HORMONE 38.1 uIU/ML (0.358-3.740); THYROXINE (T4) 11.1 UG/DL (4.5-12.0)
[2021-12-12 22:11] VITALS: BP 124/56
== END 2021-12-12 22:36 | disposition home or self-care (01) ==
LOC: EDBD 17:10 → M ED 17:10
DX: E86.0 Dehydration (principal); R94.6 Abnormal results of thyroid function studies; J44.9 Chronic obstructive pulmonary disease, unspecified; E03.9 Hypothyroidism, unspecified; G40.909 Epilepsy, unspecified, not intractable, without status epilepticus; Z87.19 Personal history of other diseases of the digestive system; Z87.442 Personal history of urinary calculi; Z79.899 Other long term (current) drug therapy; Z79.890 Hormone replacement therapy; Z88.1 Allergy status to other antibiotic agents; Z88.2 Allergy status to sulfonamides; Z88.8 Allergy status to other drugs, medicaments and biological substances; Z91.040 Latex allergy status
CPT/HCPCS: 80047; 82550; 84436; 84443; 84479; 85025; 93005; 96361; 96374; 99284; J2405

== ENCOUNTER → 2021-12-12 | Outpatient (REF) | payer MEDICAID ==
[~2021-12-12] MED LIST changes: +AMPH1CAP14 PO; +ERGO500029; +MYRB50TA; +SERT50TA29
== END ==
LOC: M LAB REF 11:03
PROVIDERS: ATTEND Nurse Practitioner Family
DX: E89.0 Postprocedural hypothyroidism (principal)

== ENCOUNTER → 2022-01-03 | Outpatient (CLI) | payer MEDICAID ==
[~2022-01-03] MED LIST changes: +AMPH1CAP14 PO; +ERGO500029; +MYRB50TA; +SERT50TA29
== END ==
LOC: M PLAIMG 15:21
PROVIDERS: ATTEND Nurse Practitioner Family
DX: M16.11 Unilateral primary osteoarthritis, right hip (principal); M25.551 Pain in right hip

== ENCOUNTER 2022-02-10 15:55 | Inpatient (IN) | payer MEDICAID ==
[~2022-02-10] VITALS: Ht 167.6 cm; Wt 86.8 kg
[~2022-02-10 15:55] MED LIST changes: -ERGO500029; +ERGO500029 PO; -MYRB50TA; +MYRB50TA PO; -SERT50TA29; +SERT50TA29 PO
[2022-02-10 17:07] LABS: HEMOGLOBIN 12.9 g/dl (12.0-15.5); MEAN CORPUSCULAR HEMOGLOBIN 29.8 pg (27.0-33.0); MEAN CORPUSCULAR HGB CONC 31.5 g/dl (32.0-36.5); MEAN CORPUSCULAR VOLUME 94.7 fl (80.0-96.0); PLATELET COUNT, AUTOMATED 301 10^3/uL (150-450); RED BLOOD COUNT 4.33 10^6/uL (4.00-5.40); WHITE BLOOD COUNT 7.8 10^3/uL (4.0-10.0)
[2022-02-10 17:40] LABS: RSV AMPLIFICATION NEGATIVE (NEGATIVE)
[2022-02-10 17:43] LABS: HCG, SERUM QUALITATIVE NEGATIVE (NEGATIVE)
[2022-02-10 17:50] LABS: AMPHETAMINES LEVEL URINE POSITIVE (NEGATIVE); BARBITURATES URINE NEGATIVE (NEGATIVE); BENZODIAZEPINES URINE NEGATIVE (NEGATIVE); CANNABINOIDS URINE NEGATIVE (NEGATIVE); COCAINE METABOLITE URINE NEGATIVE (NEGATIVE); METHADONE URINE NEGATIVE (NEGATIVE); OPIATES URINE NEGATIVE (NEGATIVE); PHENCYCLIDINE URINE NEGATIVE (NEGATIVE)
[2022-02-10 18:13] LABS: ACETAMINOPHEN LEVEL < 2.0 UG/ML (10.0-30.0); ALBUMIN 3.4 GM/DL (3.2-5.2); ALT/SGPT 21 U/L (12-78); BILIRUBIN,DIRECT 0.2 MG/DL (0.0-0.2); BILIRUBIN,TOTAL 0.2 MG/DL (0.2-1.0); BLOOD UREA NITROGEN 9 MG/DL (7-18); CALCIUM LEVEL 8.9 MG/DL (8.5-10.1); CARBON DIOXIDE LEVEL 27 MEQ/L (21-32); CHLORIDE LEVEL 110 MEQ/L (98-107); CREATININE FOR GFR 0.76 MG/DL (0.55-1.30); ETHYL ALCOHOL (ETHANOL) 0.005 % (0.000-0.010); FREE T4 0.98 NG/DL (0.76-1.46); GLOMERULAR FILTRATION RATE > 60.0 (>58); GLUCOSE, FASTING 97 MG/DL (70-100); POTASSIUM SERUM 3.8 MEQ/L (3.5-5.1); SALICYLATE LEVEL < 1.7 MG/DL (5.0-30.0); SODIUM LEVEL 141 MEQ/L (136-145); TOTAL PROTEIN 6.7 GM/DL (6.4-8.2); VALPROIC ACID (DEPAKOTE) 50.8 UG/ML (50.0-100.0)
[2022-02-10] MEDS ORDERED: ADDE10TA PO (20:54)
[2022-02-10] MEDS ORDERED: LEVO175T19 PO (20:54)
[2022-02-10] MEDS ORDERED: HOME MED LIST COMPLETE! XX SCH (20:55)
[2022-02-10] MEDS ORDERED: VITAMIN D 50,000 UNITS CAPSULE (ERGOCALCIFEROL 1.25MG) PO SCH ×2 (21:00→21:30)
[2022-02-10] MEDS ORDERED: CETIRIZINE (ZyrTEC) 10 MG TAB PO PRN (21:30)
[2022-02-10] MEDS: PRAZOSIN 1 MG CAP PO SCH (22:53)
[2022-02-10] MEDS: DIVALPROEX 500MG *ER* TAB PO SCH (22:53)
[2022-02-10] MEDS: clonazePAM 0.5 MG TAB PO SCH (22:54)
[2022-02-11] MEDS: LEVOTHYROXINE 75MCG TABLET (0.075MG) PO SCH (06:10)
[2022-02-11] MEDS: LEVOTHYROXINE 100MCG TABLET (0.1MG) PO SCH (06:10)
[2022-02-11] MEDS: ADDERALL 5 MG TAB PO SCH ×2 (08:38→18:47)
[2022-02-11] MEDS: SERTRALINE HCL 50 MG TAB PO SCH (08:39)
[2022-02-11] MEDS: DIVALPROEX 500MG *ER* TAB PO SCH ×2 (08:41→20:02)
[2022-02-11] MEDS: SYMBICORT 160/4.5MCG INHALER 6GM INH SCH ×2 (10:17→20:25)
[2022-02-11] MEDS: PRAZOSIN 1 MG CAP PO SCH (20:02)
[2022-02-11] MEDS: clonazePAM 0.5 MG TAB PO SCH (20:02)
[2022-02-12] MEDS: LEVOTHYROXINE 75MCG TABLET (0.075MG) PO SCH (05:51)
[2022-02-12] MEDS: LEVOTHYROXINE 100MCG TABLET (0.1MG) PO SCH (05:51)
[2022-02-12] MEDS: DIVALPROEX 500MG *ER* TAB PO SCH ×2 (08:44→21:19)
[2022-02-12] MEDS: SERTRALINE HCL 50 MG TAB PO SCH (08:44)
[2022-02-12] MEDS: ADDERALL 5 MG TAB PO SCH ×2 (08:44→15:40)
[2022-02-12] MEDS: SYMBICORT 160/4.5MCG INHALER 6GM INH SCH ×2 (09:23→20:08)
[2022-02-12] MEDS: PRAZOSIN 1 MG CAP PO SCH (21:18)
[2022-02-12] MEDS: clonazePAM 0.5 MG TAB PO SCH (21:19)
[2022-02-13] MEDS: LEVOTHYROXINE 100MCG TABLET (0.1MG) PO SCH (06:18)
[2022-02-13] MEDS: LEVOTHYROXINE 75MCG TABLET (0.075MG) PO SCH (06:18)
[2022-02-13] MEDS: SYMBICORT 160/4.5MCG INHALER 6GM INH SCH ×2 (08:00→20:50)
[2022-02-13] MEDS: SERTRALINE HCL 50 MG TAB PO SCH (08:59)
[2022-02-13] MEDS: ADDERALL 5 MG TAB PO SCH ×2 (09:00→16:57)
[2022-02-13] MEDS: DIVALPROEX 500MG *ER* TAB PO SCH (09:00)
[2022-02-13] MEDS ORDERED: traZODone 50 MG TAB PO PRN (12:05)
[2022-02-13] MEDS ORDERED: MAALOX 30 ML SUSP *UDC PO PRN (12:05)
[2022-02-13] MEDS ORDERED: ACETAMINOPHEN TAB 650MG DOSE (2X325MG) PO PRN (12:05)
[2022-02-13] MEDS ORDERED: MOM 30ML SUSPENSION UDC PO PRN (12:05)
[2022-02-13] MEDS ORDERED: ALBUTEROL 90 MCG/ACT 8GM HFA INHALER INH PRN (12:25)
[2022-02-13 12:32] LABS: RSV AMPLIFICATION NEGATIVE (NEGATIVE)
[2022-02-13] MEDS: PRAZOSIN 1 MG CAP PO SCH (20:51)
[2022-02-13] MEDS: DIVALPROEX 250MG *ER* TAB PO SCH (20:51)
[2022-02-13] MEDS: clonazePAM 0.5 MG TAB PO SCH (20:51)
[2022-02-14] MEDS: LEVOTHYROXINE 50MCG TABLET (0.05MG) PO SCH (06:01)
[2022-02-14] MEDS: LEVOTHYROXINE 125MCG TABLET (0.125MG) PO SCH (06:01)
[2022-02-14 06:58] VITALS: BP 108/63
[2022-02-14] MEDS: SYMBICORT 160/4.5MCG INHALER 6GM INH SCH ×2 (08:54→20:40)
[2022-02-14] MEDS: ADDERALL 5 MG TAB PO SCH ×2 (08:55→15:14)
[2022-02-14] MEDS: DIVALPROEX 250MG *ER* TAB PO SCH ×2 (08:55→20:40)
[2022-02-14] MEDS ORDERED: SERTRALINE HCL 50 MG TAB PO SCH (09:00)
[2022-02-14] MEDS ORDERED: PILL CUTTER 1 EACH XX PRN (11:25)
[2022-02-14 18:15] VITALS: BP 129/92
[2022-02-14] MEDS: busPIRone 5 MG TAB PO SCH (20:41)
[2022-02-14] MEDS: clonazePAM 0.5 MG TAB PO SCH (20:41)
[2022-02-14] MEDS: PRAZOSIN 1 MG CAP PO SCH (20:42)
[2022-02-15] MEDS: LEVOTHYROXINE 125MCG TABLET (0.125MG) PO SCH (05:47)
[2022-02-15] MEDS: LEVOTHYROXINE 50MCG TABLET (0.05MG) PO SCH (05:47)
[2022-02-15 06:53] VITALS: BP 107/69
[2022-02-15 07:48] LABS: HEMOGLOBIN A1c 5.7 %
[2022-02-15] MEDS: SERTRALINE 100 MG TAB PO SCH (08:28)
[2022-02-15] MEDS: busPIRone 5 MG TAB PO SCH (08:28)
[2022-02-15] MEDS: ADDERALL 5 MG TAB PO SCH ×2 (08:28→15:56)
[2022-02-15] MEDS: DIVALPROEX 250MG *ER* TAB PO SCH ×2 (08:29→20:49)
[2022-02-15] MEDS: SYMBICORT 160/4.5MCG INHALER 6GM INH SCH ×2 (08:51→20:50)
[2022-02-15 19:01] VITALS: BP 142/87
[2022-02-15] MEDS: PRAZOSIN 1 MG CAP PO SCH (20:50)
[2022-02-15] MEDS: busPIRone 10 MG TAB PO SCH (20:50)
[2022-02-15] MEDS: clonazePAM 0.5 MG TAB PO SCH (20:50)
[2022-02-16] MEDS: LEVOTHYROXINE 125MCG TABLET (0.125MG) PO SCH (06:04)
[2022-02-16] MEDS: LEVOTHYROXINE 50MCG TABLET (0.05MG) PO SCH (06:04)
[2022-02-16 06:30] VITALS: BP 131/70
[2022-02-16] MEDS: SYMBICORT 160/4.5MCG INHALER 6GM INH SCH ×2 (08:55→20:55)
[2022-02-16] MEDS: busPIRone 10 MG TAB PO SCH ×2 (08:55→20:55)
[2022-02-16] MEDS: SERTRALINE 100 MG TAB PO SCH (08:55)
[2022-02-16] MEDS: DIVALPROEX 250MG *ER* TAB PO SCH ×2 (08:56→20:55)
[2022-02-16] MEDS: ADDERALL 5 MG TAB PO SCH ×2 (08:57→16:52)
[2022-02-16] MEDS: clonazePAM 0.5 MG TAB PO SCH (20:55)
[2022-02-16] MEDS: PRAZOSIN 1 MG CAP PO SCH (20:56)
[2022-02-17] MEDS: LEVOTHYROXINE 50MCG TABLET (0.05MG) PO SCH (05:45)
[2022-02-17] MEDS: LEVOTHYROXINE 125MCG TABLET (0.125MG) PO SCH (05:45)
[2022-02-17 06:19] VITALS: BP 130/78
[2022-02-17] MEDS: busPIRone 10 MG TAB PO SCH ×2 (08:23→20:40)
[2022-02-17] MEDS: DIVALPROEX 250MG *ER* TAB PO SCH ×2 (08:23→20:41)
[2022-02-17] MEDS: SYMBICORT 160/4.5MCG INHALER 6GM INH SCH ×2 (08:23→20:40)
[2022-02-17] MEDS: ADDERALL 5 MG TAB PO SCH ×2 (08:24→16:18)
[2022-02-17] MEDS: SERTRALINE 100 MG TAB PO SCH (08:24)
[2022-02-17] MEDS ORDERED: VITAMIN D 50,000 UNITS CAPSULE (ERGOCALCIFEROL 1.25MG) PO SCH (09:00)
[2022-02-17 19:16] VITALS: BP 122/79
[2022-02-17] MEDS: PRAZOSIN 1 MG CAP PO SCH (20:41)
[2022-02-17] MEDS: clonazePAM 0.5 MG TAB PO SCH (20:42)
[2022-02-18] MEDS: LEVOTHYROXINE 125MCG TABLET (0.125MG) PO SCH (05:22)
[2022-02-18] MEDS: LEVOTHYROXINE 50MCG TABLET (0.05MG) PO SCH (05:22)
[2022-02-18 06:00] VITALS: BP 111/69
[2022-02-18] MEDS: SYMBICORT 160/4.5MCG INHALER 6GM INH SCH ×2 (08:28→20:13)
[2022-02-18] MEDS: SERTRALINE 100 MG TAB PO SCH (08:29)
[2022-02-18] MEDS: DIVALPROEX 250MG *ER* TAB PO SCH ×2 (08:29→20:14)
[2022-02-18] MEDS: CETIRIZINE (ZyrTEC) 10 MG TAB PO PRN (08:29)
[2022-02-18] MEDS: busPIRone 10 MG TAB PO SCH ×2 (08:29→20:14)
[2022-02-18] MEDS: ADDERALL 5 MG TAB PO SCH ×2 (08:29→15:58)
[2022-02-18 16:32] VITALS: BP 119/70
[2022-02-18] MEDS: CARBAMIDE PEROXIDE 6.5% OTIC SOLN 15ML AU SCH (20:13)
[2022-02-18 20:14] VITALS: BP 129/77
[2022-02-18] MEDS: clonazePAM 0.5 MG TAB PO SCH (20:14)
[2022-02-18] MEDS: PRAZOSIN 1 MG CAP PO SCH (20:14)
[2022-02-19] MEDS: LEVOTHYROXINE 125MCG TABLET (0.125MG) PO SCH (05:26)
[2022-02-19] MEDS: LEVOTHYROXINE 50MCG TABLET (0.05MG) PO SCH (05:26)
[2022-02-19 06:12] VITALS: BP 121/73
[2022-02-19] MEDS: SYMBICORT 160/4.5MCG INHALER 6GM INH SCH (08:33)
[2022-02-19] MEDS: CARBAMIDE PEROXIDE 6.5% OTIC SOLN 15ML AU SCH (08:34)
[2022-02-19] MEDS: ADDERALL 5 MG TAB PO SCH (08:34)
[2022-02-19] MEDS: DIVALPROEX 250MG *ER* TAB PO SCH (08:35)
[2022-02-19] MEDS: SERTRALINE 100 MG TAB PO SCH (08:35)
[2022-02-19] MEDS: busPIRone 10 MG TAB PO SCH (08:35)
[2022-02-19] MEDS: CETIRIZINE (ZyrTEC) 10 MG TAB PO PRN (08:37)
[2022-02-19] MEDS ORDERED: CARBOT AU (09:53)
[2022-02-19] MEDS ORDERED: PRAZ1CAP PO (09:53)
[2022-02-19] MEDS ORDERED: DIVA500T9 PO (09:53)
[2022-02-19] MEDS ORDERED: BUSP10TA PO (09:53)
[2022-02-19] MEDS ORDERED: ZOLO100T PO (09:53)
== END 2022-02-19 11:40 | disposition home or self-care (01) | DRG 751 ==
LOC: M ED 15:55 → M ED INP 02-13 12:02 → M PSY 02-13 13:30
PROVIDERS: ADMIT Student in an Organized Health Care Education/Training Program; ATTEND Student in an Organized Health Care Education/Training Program
DX: F33.1 Major depressive disorder, recurrent, moderate (principal); F43.10 Post-traumatic stress disorder, unspecified; F60.89 Other specific personality disorders; G40.909 Epilepsy, unspecified, not intractable, without status epilepticus; R45.851 Suicidal ideations; Z91.51 Personal history of suicidal behavior; J45.909 Unspecified asthma, uncomplicated; K21.9 Gastro-esophageal reflux disease without esophagitis; E03.9 Hypothyroidism, unspecified; Z91.410 Personal history of adult physical and sexual abuse; Z20.822 Contact with and (suspected) exposure to COVID-19; Z79.890 Hormone replacement therapy; Z79.899 Other long term (current) drug therapy; Z91.040 Latex allergy status; Z88.2 Allergy status to sulfonamides; Z88.1 Allergy status to other antibiotic agents; Z88.8 Allergy status to other drugs, medicaments and biological substances; Z90.49 Acquired absence of other specified parts of digestive tract; Z90.79 Acquired absence of other genital organ(s); R73.03 Prediabetes; H61.23 Impacted cerumen, bilateral

== ENCOUNTER 2022-02-24 22:46 | Emergency (ER) | payer MEDICAID ==
[~2022-02-24] VITALS: Ht 167.6 cm; Wt 88.6 kg
[~2022-02-24 22:46] MED LIST changes: +ADDE10TA PO; +BUSP10TA PO; +CARBOT AU; +LEVO175T19 PO; +ZOLO100T PO
[2022-02-24 23:31] LABS: BASO % 0.5 % (0.0-1.0); EOS # 0.1 10^3/uL (0.0-0.5); EOS % 0.8 % (0.0-3.0); HEMATOCRIT 43.5 % (36.0-47.0); HEMOGLOBIN 13.7 g/dl (12.0-15.5); LYMPH # 3.4 10^3/uL (1.5-5.0); LYMPH % 39.8 % (24.0-44.0); MEAN CORPUSCULAR HEMOGLOBIN 29.2 pg (27.0-33.0); MEAN CORPUSCULAR HGB CONC 31.5 g/dl (32.0-36.5); MEAN CORPUSCULAR VOLUME 92.8 fl (80.0-96.0); MONO # 0.7 10^3/uL (0.0-0.8); MONO % 8.6 % (2.0-8.0); NEUTROPHILS # 4.3 10^3/uL (1.5-8.5); NEUTROPHILS % 50.2 % (36.0-66.0); PLATELET COUNT, AUTOMATED 348 10^3/uL (150-450); RED BLOOD COUNT 4.69 10^6/uL (4.00-5.40); WHITE BLOOD COUNT 8.5 10^3/uL (4.0-10.0)
[2022-02-25 00:07] LABS: ALBUMIN 3.6 GM/DL (3.2-5.2); ALT/SGPT 27 U/L (12-78); BILIRUBIN,DIRECT < 0.1 MG/DL (0.0-0.2); BILIRUBIN,TOTAL 0.2 MG/DL (0.2-1.0); BLOOD UREA NITROGEN 14 MG/DL (7-18); CALCIUM LEVEL 9.3 MG/DL (8.5-10.1); CARBON DIOXIDE LEVEL 28 MEQ/L (21-32); CHLORIDE LEVEL 107 MEQ/L (98-107); CREATININE FOR GFR 0.89 MG/DL (0.55-1.30); GLOMERULAR FILTRATION RATE > 60.0 (>58); GLUCOSE, FASTING 115 MG/DL (70-100); LIPASE 122 U/L (73-393); POTASSIUM SERUM 4.2 MEQ/L (3.5-5.1); SODIUM LEVEL 141 MEQ/L (136-145)
[2022-02-25] MEDS ORDERED: MORPHINE 2 MG/ML 1ML VIAL IV ONE (02:40)
[2022-02-25] MEDS ORDERED: ONDANSETRON 4MG 2ML VIAL IV ONE (02:40)
[2022-02-25] MEDS ORDERED: ISOVUE-370 76% 100ML VIAL As Ordered ONE (02:46)
[2022-02-25 04:56] VITALS: BP 120/70
== END 2022-02-25 04:57 | disposition home or self-care (01) ==
LOC: M ED 22:46
DX: R10.9 Unspecified abdominal pain (principal); R11.2 Nausea with vomiting, unspecified; R19.7 Diarrhea, unspecified; Z79.899 Other long term (current) drug therapy; Z88.1 Allergy status to other antibiotic agents; Z88.2 Allergy status to sulfonamides; Z88.8 Allergy status to other drugs, medicaments and biological substances; Z91.040 Latex allergy status; Z91.048 Other nonmedicinal substance allergy status
CPT/HCPCS: 74177; 80053; 82248; 83690; 85025; 96374; 96375; 99284; J2270; J2405; Q9967

== ENCOUNTER → 2022-07-17 | Outpatient (CLI) | payer MEDICAID | LOC: M RAD 13:07 | PROVIDERS: ATTEND Registered Nurse | DX: M47.812 Spondylosis without myelopathy or radiculopathy, cervical region (principal); M47.896 Other spondylosis, lumbar region ==

== ENCOUNTER 2022-10-17 08:58 | Outpatient (RCR) | payer MEDICAID | END 2022-10-20 | LOC: M PT 08:58 | PROVIDERS: ATTEND Physician Assistant | DX: M47.896 Other spondylosis, lumbar region (principal) ==

== ENCOUNTER 2022-10-24 14:13 | Outpatient (RCR) | payer MEDICAID ==
[~2022-10-24 14:13] MED LIST changes: -VENL225T25 PO; +VENL225T32 PO
== END 2022-11-20 ==
LOC: M PT 14:13
PROVIDERS: ATTEND Physician Assistant
DX: M47.896 Other spondylosis, lumbar region (principal)

== ENCOUNTER → 2022-11-13 | Outpatient (REF) | payer MEDICAID, OTHER, SELFPAY | LOC: M LAB REF 17:03 | PROVIDERS: ATTEND Nurse Practitioner Family | DX: R30.0 Dysuria (principal) ==

== ENCOUNTER 2022-12-30 07:46 | Day surgery (SDC) | payer MEDICAID ==
[~2022-12-30] VITALS: Ht 167.6 cm; Wt 92.8 kg
[~2022-12-30 07:46] MED LIST changes: -FLUT11IN INH; +FLUT12AE6 INH; +LIDOCAINE 2% 100MG/5ML SDV (FOR ANES.) As Ordered ONE; +NS 1,000 ML IV ONE; +PROA1AER2 INH; +SIMETHICONE 40MG/0.6ML DROPS 30ML As Ordered ONE; +TIZA4CAP6 PO; +fentaNYL 100 MCG/2 ML INJECTION As Ordered ONE; +propofoL 500 MG/50 ML VIAL As Ordered ONE
[2022-12-30] MEDS ORDERED: ONDANSETRON 4MG 2ML VIAL As Ordered ONE (09:05)
[2022-12-30 09:20] VITALS: TEMP 96.3
[2022-12-30 10:00] VITALS: BP 123/78; O2SAT 97
== END 2022-12-30 10:25 | disposition home or self-care (01) ==
LOC: M OPP 07:46
PROVIDERS: ATTEND Internal Medicine Gastroenterology
DX: Z12.11 Encounter for screening for malignant neoplasm of colon (principal); K64.4 Residual hemorrhoidal skin tags; K64.8 Other hemorrhoids; K63.5 Polyp of colon; K57.30 Diverticulosis of large intestine without perforation or abscess without bleeding; K22.89 Other specified disease of esophagus; K21.00 Gastro-esophageal reflux disease with esophagitis, without bleeding; K44.9 Diaphragmatic hernia without obstruction or gangrene; K29.70 Gastritis, unspecified, without bleeding; R63.0 Anorexia; Z79.899 Other long term (current) drug therapy; Z88.2 Allergy status to sulfonamides; Z88.6 Allergy status to analgesic agent; Z91.040 Latex allergy status; Z91.048 Other nonmedicinal substance allergy status
CPT/HCPCS: 43239; 45380; 88305; J2405; J3010

== ENCOUNTER → 2023-02-04 | Outpatient (REF) | payer MEDICAID ==
[~2023-02-04] MED LIST changes: -LIDOCAINE 2% 100MG/5ML SDV (FOR ANES.) As Ordered ONE; -NS 1,000 ML IV ONE; -SIMETHICONE 40MG/0.6ML DROPS 30ML As Ordered ONE; -fentaNYL 100 MCG/2 ML INJECTION As Ordered ONE; -propofoL 500 MG/50 ML VIAL As Ordered ONE
[2023-02-04 20:05] LABS: GC DNA AMPLIFICATION NEGATIVE (NEGATIVE)
== END ==
LOC: M LAB REF 17:03
PROVIDERS: ATTEND Nurse Practitioner Family
DX: R30.0 Dysuria (principal); N39.0 Urinary tract infection, site not specified; Z11.3 Encounter for screening for infections with a predominantly sexual mode of transmission

== ENCOUNTER → 2023-02-26 | Outpatient (CLI) | payer MEDICAID ==
[2023-02-26 20:04] LABS: GC DNA AMPLIFICATION NEGATIVE (NEGATIVE)
== END ==
LOC: M PLAIMG 14:22 → M PLALAB 14:22
PROVIDERS: ATTEND Nurse Practitioner Family
DX: Z00.00 Encounter for general adult medical examination without abnormal findings (principal); R05.9 Cough, unspecified; R35.0 Frequency of micturition; Z11.3 Encounter for screening for infections with a predominantly sexual mode of transmission

== ENCOUNTER → 2023-03-03 | Outpatient (REF) | payer MEDICAID | LOC: M LAB REF 11:22 | PROVIDERS: ATTEND Physician Assistant Medical | DX: R50.9 Fever, unspecified (principal) ==

== ENCOUNTER 2023-03-08 09:02 | Emergency (ER) | payer MEDICAID ==
[~2023-03-08] VITALS: Ht 167.6 cm; Wt 90.0 kg
[2023-03-08] MEDS ORDERED: MONT10TA97 (09:21)
[2023-03-08] MEDS ORDERED: ONDA-83 (09:21)
[2023-03-08] MEDS ORDERED: ZALE10CA (09:21)
[2023-03-08] MEDS ORDERED: NS 1,000 ML IV ONE (09:35)
[2023-03-08] MEDS ORDERED: ONDANSETRON 4MG 2ML VIAL IV ONE (09:35)
[2023-03-08 10:09] LABS: HEMATOCRIT 42.1 % (36.0-47.0); HEMOGLOBIN 13.4 g/dl (12.0-15.5); MEAN CORPUSCULAR HEMOGLOBIN 28.3 pg (27.0-33.0); MEAN CORPUSCULAR HGB CONC 31.8 g/dl (32.0-36.5); PLATELET COUNT, AUTOMATED 243 10^3/uL (150-450); RED BLOOD COUNT 4.73 10^6/uL (4.00-5.40)
[2023-03-08 10:24] LABS: LIPASE 23 U/L (12-53)
[2023-03-08 10:26] LABS: ALBUMIN 2.6 G/DL (3.2-5.2); ALKALINE PHOSPHATASE 64 U/L (46-116); ALT/SGPT 42 U/L (7.0-40); AST/SGOT 43 U/L (<34); BILIRUBIN,DIRECT 0.2 MG/DL (<0.4); BILIRUBIN,TOTAL 0.4 MG/DL (0.3-1.2); BLOOD UREA NITROGEN 7 MG/DL (9-23); CALCIUM LEVEL 8.3 MG/DL (8.5-10.1); CARBON DIOXIDE LEVEL 32 MMOL/L (20-31); CHLORIDE LEVEL 102 MMOL/L (98-107); CREATININE FOR GFR 0.76 MG/DL (0.55-1.30); GLOMERULAR FILTRATION RATE > 60.0 (>58); GLUCOSE, FASTING 116 MG/DL (60-100); POTASSIUM SERUM 3.7 MMOL/L (3.5-5.1); SODIUM LEVEL 139 MMOL/L (136-145); TOTAL PROTEIN 6.2 G/DL (5.7-8.2)
[2023-03-08 10:29] LABS: ATYPICAL LYMPH 34 % (0-5); BASOPHILS 1 % (0-1); LYMPHOCYTES 22 % (16-44); MONOCYTES 10 % (0-5); NEUTROPHILS 33 % (28-66); PLATELET ESTIMATE NORMAL (NORMAL)
[2023-03-08 10:38] LABS: RSV AMPLIFICATION NEGATIVE (NEGATIVE)
[2023-03-08 10:46] LABS: HCG, SERUM QUANTITATIVE 16.4 MIU/ML (<4.2)
[2023-03-08] MEDS ORDERED: FIDAXOMICIN 200 MG TAB (DIFICID) PO ONE (10:50)
[2023-03-08] MEDS ORDERED: DIFI200T PO (11:59)
[2023-03-08] MEDS ORDERED: ONDA4TAB6 PO (11:59)
[2023-03-08 12:26] VITALS: BP 113/66; TEMP 99.6; O2SAT 97
== END 2023-03-08 12:39 | disposition home or self-care (01) ==
LOC: EDBD 09:02 → M ED 09:02
DX: A04.72 Enterocolitis due to Clostridium difficile, not specified as recurrent (principal); F43.10 Post-traumatic stress disorder, unspecified; F41.9 Anxiety disorder, unspecified; F31.9 Bipolar disorder, unspecified; F32.A Depression, unspecified; Z88.1 Allergy status to other antibiotic agents; Z88.2 Allergy status to sulfonamides; Z88.6 Allergy status to analgesic agent; Z91.040 Latex allergy status; Z91.048 Other nonmedicinal substance allergy status; Z79.52 Long term (current) use of systemic steroids; Z79.83 Long term (current) use of bisphosphonates; Z79.899 Other long term (current) drug therapy

== ENCOUNTER → 2023-04-04 | Outpatient (CLI) | payer MEDICAID ==
[~2023-04-04] MED LIST changes: +DIFI200T PO; +MONT10TA97; +ONDA-83; +ZALE10CA
== END ==
LOC: M PLAIMG 09:21
PROVIDERS: ATTEND Nurse Practitioner Adult Health
DX: R91.8 Other nonspecific abnormal finding of lung field (principal)

== ENCOUNTER → 2023-04-07 | Outpatient (CLI) | payer MEDICAID | LOC: M WHC 08:34 | PROVIDERS: ATTEND Nurse Practitioner Family | DX: Z12.31 Encounter for screening mammogram for malignant neoplasm of breast (principal) ==

== ENCOUNTER → 2023-04-14 | Outpatient (CLI) | payer MEDICAID | LOC: M PLAIMG 13:03 | PROVIDERS: ATTEND Nurse Practitioner Adult Health | DX: R91.8 Other nonspecific abnormal finding of lung field (principal); R05.9 Cough, unspecified ==

== ENCOUNTER → 2023-06-25 | Outpatient (CLI) | payer MEDICAID | LOC: M PLAIMG 09:24 | PROVIDERS: ATTEND Nurse Practitioner Adult Health | DX: R05.9 Cough, unspecified (principal); R91.8 Other nonspecific abnormal finding of lung field ==

== ENCOUNTER → 2023-07-23 | Outpatient (REF) | payer MEDICAID ==
[2023-07-23 19:06] LABS: CHLAMYDIA DNA AMPLIFICATION NEGATIVE (NEGATIVE); GC DNA AMPLIFICATION NEGATIVE (NEGATIVE)
== END ==
LOC: M LAB REF 17:11
PROVIDERS: ATTEND Nurse Practitioner Family
DX: R30.0 Dysuria (principal); Z11.3 Encounter for screening for infections with a predominantly sexual mode of transmission

== ENCOUNTER → 2023-10-01 | Outpatient (CLI) | payer MEDICAID ==
[~2023-10-01] MED LIST changes: -KLON0.5T PO; +KLON0.5T8 PO; +TIZA4CAP3 PO; -TIZA4CAP6 PO
== END ==
LOC: M RAD 09:13
PROVIDERS: ATTEND Nurse Practitioner Adult Health
DX: R91.8 Other nonspecific abnormal finding of lung field (principal)

== ENCOUNTER → 2023-10-28 | Outpatient (REF) | payer MEDICAID ==
[2023-10-28 23:02] LABS: APPEARANCE, URINE HAZY (CLEAR); BACTERIA, URINE AUTO NEGATIVE (NEGATIVE); BILIRUBIN, URINE AUTO NEGATIVE (NEGATIVE); BLOOD, URINE BLOOD 1+ (NEGATIVE); COLOR, URINE YELLOW (YELLOW); GLUCOSE, URINE (UA) AUTO NEGATIVE (NEGATIVE); KETONE, URINE AUTO TRACE mg/dL (NEGATIVE); LEUKOCYTE ESTERASE, URINE AUTO TRACE (NEGATIVE); MUCUS, URINE SMALL (NEGATIVE); NITRITE, URINE AUTO NEGATIVE (NEGATIVE); PROTEIN, URINE AUTO 1+ mg/dL (NEGATIVE); RBC, URINE AUTO 4 /HPF (0-3); SPECIFIC GRAVITY URINE AUTO 1.017 (1.002-1.035); SQUAMOUS EPITHELIAL CELL UR AU 3 /HPF (0-6); UROBILINOGEN, URINE AUTO 0.2 mg/dL (0.0-2.0); WBC, URINE AUTO 20 /HPF (0-3)
[2023-10-29 00:23] LABS: Trichomonas vaginalis (AMP) NOT DETECTED (NEGATIVE)
[2023-10-29 00:46] LABS: GC DNA AMPLIFICATION NEGATIVE (NEGATIVE)
== END ==
LOC: M LAB REF 22:13
PROVIDERS: ATTEND Physician Assistant Medical
DX: N39.0 Urinary tract infection, site not specified (principal)

== ENCOUNTER → 2023-11-14 | Outpatient (REF) | payer MEDICAID ==
[2023-11-14 16:48] LABS: Trichomonas vaginalis (AMP) NOT DETECTED (NEGATIVE)
[2023-11-14 17:11] LABS: GC DNA AMPLIFICATION NEGATIVE (NEGATIVE)
== END ==
LOC: M PLALAB 12:00
PROVIDERS: ATTEND Advanced Practice Midwife
DX: Z11.3 Encounter for screening for infections with a predominantly sexual mode of transmission (principal)

== ENCOUNTER → 2023-11-18 | Outpatient (CLI) | payer MEDICAID ==
[2023-11-18 12:53] LABS: BASO % 0.5 % (0.0-1.0); EOS # 0.1 10^3/uL (0.0-0.5); EOS % 1.1 % (0.0-3.0); HEMATOCRIT 41.9 % (36.0-47.0); HEMOGLOBIN 12.9 g/dl (12.0-15.5); LYMPH # 3.3 10^3/uL (1.5-5.0); LYMPH % 54.3 % (24.0-44.0); MEAN CORPUSCULAR HEMOGLOBIN 29.3 pg (27.0-33.0); MEAN CORPUSCULAR HGB CONC 30.8 g/dl (32.0-36.5); MONO # 0.5 10^3/uL (0.0-0.8); MONO % 7.3 % (2.0-8.0); NEUTROPHILS # 2.2 10^3/uL (1.5-8.5); NEUTROPHILS % 36.6 % (36.0-66.0); PLATELET COUNT, AUTOMATED 281 10^3/uL (150-450); RED BLOOD COUNT 4.41 10^6/uL (4.00-5.40); WHITE BLOOD COUNT 6.1 10^3/uL (4.0-10.0)
[2023-11-18 13:15] LABS: ERYTHROCYTE SEDIMENTATION RATE 20 mm/hr (0-20)
[2023-11-18 13:17] LABS: VALPROIC ACID (DEPAKOTE) 61.2 UG/ML (50.0-100.0)
[2023-11-18 13:19] LABS: ALBUMIN 3.4 G/DL (3.2-5.2); ALKALINE PHOSPHATASE 82 U/L (46-116); ALT/SGPT 20 U/L (7.0-40); AST/SGOT 11 U/L (<34); BILIRUBIN,TOTAL 0.4 MG/DL (0.3-1.2); BLOOD UREA NITROGEN 9 MG/DL (9-23); CALCIUM LEVEL 9.3 MG/DL (8.5-10.1); CARBON DIOXIDE LEVEL 30 MMOL/L (20-31); CHLORIDE LEVEL 106 MMOL/L (98-107); CREATININE FOR GFR 0.78 MG/DL (0.55-1.30); GLOMERULAR FILTRATION RATE > 60.0 (>58); GLUCOSE, FASTING 78 MG/DL (60-100); POTASSIUM SERUM 4.7 MMOL/L (3.5-5.1); RHEUMATOID FACTOR QUANT 7.7 IU/ML (<14); SODIUM LEVEL 140 MMOL/L (136-145); TOTAL PROTEIN 6.7 G/DL (5.7-8.2)
[2023-11-19 12:10] LABS: ANTINUCLEAR ANTIBODIES DIRECT Negative (Negative)
== END ==
LOC: M LAB 08:50 → M PLALAB 08:50
PROVIDERS: ATTEND Psychiatry & Neurology Neurology
DX: R56.9 Unspecified convulsions (principal); G43.909 Migraine, unspecified, not intractable, without status migrainosus

== ENCOUNTER → 2023-11-18 | Outpatient (CLI) | payer MEDICAID ==
[2023-11-18 13:49] LABS: HIV 1&2 SCREEN NEGATIVE (NEGATIVE)
[2023-11-18 13:56] LABS: HEPATITIS C VIRUS ABY INDEX < 0.02 INDEX (<0.8)
== END ==
LOC: M PLALAB 08:47
PROVIDERS: ATTEND Advanced Practice Midwife
DX: Z11.3 Encounter for screening for infections with a predominantly sexual mode of transmission (principal)

== ENCOUNTER → 2023-12-12 | Outpatient (REF) | payer MEDICAID ==
[~2023-12-12] MED LIST changes: +ONDA-282 PO; -ONDA4TAB6 PO
== END ==
LOC: M SFHCWAGY 17:08
PROVIDERS: ATTEND Advanced Practice Midwife
DX: R87.622 Low grade squamous intraepithelial lesion on cytologic smear of vagina (LGSIL) (principal); Z85.42 Personal history of malignant neoplasm of other parts of uterus

== ENCOUNTER → 2024-04-27 | Outpatient (REF) | payer MEDICAID | LOC: M LAB REF 16:37 | PROVIDERS: ATTEND Physician Assistant Medical | DX: R05.9 Cough, unspecified (principal) ==

== ENCOUNTER → 2024-05-30 | Outpatient (REF) | payer MEDICAID | LOC: M LAB REF 19:36 | PROVIDERS: ATTEND Physician Assistant Medical | DX: B34.9 Viral infection, unspecified (principal) ==

== ENCOUNTER → 2024-06-18 | Outpatient (CLI) | payer MEDICAID | LOC: M PLAIMG 12:22 | PROVIDERS: ATTEND Nurse Practitioner Family | DX: R05.9 Cough, unspecified (principal); R91.8 Other nonspecific abnormal finding of lung field ==

== ENCOUNTER 2024-06-26 02:59 | Emergency (ER) | payer MEDICAID ==
[~2024-06-26] VITALS: Ht 167.6 cm; Wt 91.0 kg
[2024-06-26] MEDS: ONDANSETRON 4MG ORAL DISINTEGRATING TAB PO ONE (07:17)
[2024-06-26] MEDS: ACETAMINOPHEN 500 MG TAB PO ONE (07:18)
[2024-06-26 08:05] VITALS: BP 133/81; TEMP 97.1; O2SAT 97
== END 2024-06-26 08:18 | disposition home or self-care (01) ==
LOC: EDBD 02:59 → M ED 02:59
DX: S06.0X0A Concussion without loss of consciousness, initial encounter (principal); Y92.019 Unspecified place in single-family (private) house as the place of occurrence of the external cause; Y93.9 Activity, unspecified; Y99.9 Unspecified external cause status; Y04.2XXA Assault by strike against or bumped into by another person, initial encounter; K21.9 Gastro-esophageal reflux disease without esophagitis; G40.909 Epilepsy, unspecified, not intractable, without status epilepticus; F31.9 Bipolar disorder, unspecified; F41.9 Anxiety disorder, unspecified; F32.A Depression, unspecified; Z88.1 Allergy status to other antibiotic agents; Z88.2 Allergy status to sulfonamides; Z88.8 Allergy status to other drugs, medicaments and biological substances; Z91.040 Latex allergy status; Z79.51 Long term (current) use of inhaled steroids; Z79.899 Other long term (current) drug therapy

== ENCOUNTER → 2024-07-09 | Outpatient (CLI) | payer MEDICAID | LOC: M RAD 10:52 | PROVIDERS: ATTEND Nurse Practitioner Adult Health | DX: R91.8 Other nonspecific abnormal finding of lung field (principal); K76.0 Fatty (change of) liver, not elsewhere classified; Z90.49 Acquired absence of other specified parts of digestive tract ==

== ENCOUNTER → 2024-07-21 | Outpatient (CLI) | payer MEDICAID | LOC: M RAD 12:45 | PROVIDERS: ATTEND Nurse Practitioner Adult Health | DX: R50.9 Fever, unspecified (principal) ==

== ENCOUNTER → 2024-07-22 | Outpatient (CLI) | payer MEDICAID ==
[2024-07-22 14:37] LABS: BASO # 0.1 10^3/uL (0.0-0.2); BASO % 0.7 % (0.0-1.0); EOS # 0.1 10^3/uL (0.0-0.5); EOS % 1.1 % (0.0-3.0); HEMATOCRIT 43.6 % (36.0-47.0); HEMOGLOBIN 13.7 g/dl (12.0-15.5); LYMPH % 49.5 % (24.0-44.0); MEAN CORPUSCULAR HEMOGLOBIN 29.1 pg (27.0-33.0); MEAN CORPUSCULAR HGB CONC 31.4 g/dl (32.0-36.5); MEAN CORPUSCULAR VOLUME 92.6 fl (80.0-96.0); MONO # 0.6 10^3/uL (0.0-0.8); NEUTROPHILS # 3.4 10^3/uL (1.5-8.5); NEUTROPHILS % 41.5 % (36.0-66.0); PLATELET COUNT, AUTOMATED 303 10^3/uL (150-450); RED BLOOD COUNT 4.71 10^6/uL (4.00-5.40); WHITE BLOOD COUNT 8.1 10^3/uL (4.0-10.0)
[2024-07-22 15:00] LABS: ERYTHROCYTE SEDIMENTATION RATE 26 mm/hr (0-20)
[2024-07-22 15:14] LABS: ALBUMIN 3.7 G/DL (3.2-5.2); ALKALINE PHOSPHATASE 96 U/L (35-104); ALT/SGPT 15 U/L (7.0-40); AST/SGOT < 8 U/L (<34); BILIRUBIN,TOTAL 0.3 MG/DL (0.3-1.2); BLOOD UREA NITROGEN 16 MG/DL (9-23); C REACTIVE PROTEIN QUANTITATIV < 0.50 MG/DL (<1.0); CALCIUM LEVEL 9.8 MG/DL (8.5-10.1); CARBON DIOXIDE LEVEL 31 MMOL/L (20-31); CHLORIDE LEVEL 106 MMOL/L (98-107); CREATININE FOR GFR 0.79 MG/DL (0.55-1.30); GLOMERULAR FILTRATION RATE > 60.0 (>58); GLUCOSE, FASTING 85 MG/DL (60-100); POTASSIUM SERUM 4.7 MMOL/L (3.5-5.1); SODIUM LEVEL 143 MMOL/L (136-145); TOTAL PROTEIN 7.1 G/DL (5.7-8.2)
== END ==
LOC: M LAB 12:25
PROVIDERS: ATTEND Nurse Practitioner Family
DX: R50.9 Fever, unspecified (principal); R35.0 Frequency of micturition

== ENCOUNTER 2024-12-27 02:52 | Emergency (ER) | payer OTHER, MEDICAID ==
[~2024-12-27] VITALS: Ht 167.6 cm; Wt 94.5 kg
[~2024-12-27 02:52] MED LIST changes: +RALTEGRAVIR 400 MG TAB PO SCH; +VENL225T PO; -VENL225T32 PO
[2024-12-27 02:55] VITALS: BP 132/88; TEMP 97.8; O2SAT 100
[2024-12-27 08:53] LABS: BASO # 0.0 10^3/uL (0.0-0.2); BASO % 0.5 % (0.0-1.0); EOS # 0.0 10^3/uL (0.0-0.5); EOS % 0.2 % (0.0-3.0); LYMPH # 3.2 10^3/uL (1.5-5.0); LYMPH % 37.9 % (24.0-44.0); MONO # 0.6 10^3/uL (0.0-0.8); MONO % 6.9 % (2.0-8.0); NEUTROPHILS # 4.6 10^3/uL (1.5-8.5); NEUTROPHILS % 54.3 % (36.0-66.0); PLATELET COUNT, AUTOMATED 349 10^3/uL (150-450)
[2024-12-27 09:25] LABS: ALT/SGPT 26 U/L (7.0-40); AST/SGOT 17 U/L (<34); CALCIUM LEVEL 9.5 MG/DL (8.5-10.1); CARBON DIOXIDE LEVEL 29 MMOL/L (20-31); CHLORIDE LEVEL 105 MMOL/L (98-107); CREATININE FOR GFR 0.69 MG/DL (0.55-1.30); GLOMERULAR FILTRATION RATE > 90.0 (>58); POTASSIUM SERUM 4.4 MMOL/L (3.5-5.1); SODIUM LEVEL 142 MMOL/L (136-145)
[2024-12-27 09:33] LABS: HEPATITIS B SURFACE ANTIBODY POSITIVE (POSITIVE)
[2024-12-27] MEDS ORDERED: EXPOSURE KIT-ADULT 7 DAY SUPPLY PO ONE (09:50)
[2024-12-27] MEDS ORDERED: RALT40TA PO (09:51)
[2024-12-27] MEDS ORDERED: LEVO1TAB39 PO (09:51)
[2024-12-27] MEDS ORDERED: EMTR1TAB16 PO (09:51)
[2024-12-27] MEDS: HEPATITIS B VACCINE 20 MCG/ML IM.IMMUN ONE (09:55)
[2024-12-27 09:57] LABS: Trichomonas vaginalis (AMP) NOT DETECTED (NEGATIVE)
[2024-12-27 09:58] LABS: HIV 1&2 SCREEN NEGATIVE (NEGATIVE)
[2024-12-27 10:07] LABS: HEPATITIS C VIRUS ABY INDEX 0.08 INDEX (<0.8)
[2024-12-27 10:20] LABS: GC DNA AMPLIFICATION NEGATIVE (NEGATIVE)
[2024-12-27] MEDS: cefTRIAXone 500 MG VIAL IM ONE (10:59)
[2024-12-27] MEDS: BOOSTRIX VACCINE (TETANUS/DIPHTH/ACEL. PERTUSSIS) 0.5 ML SYR IM.IMMUN ONE (11:01)
[2024-12-27] MEDS: LIDOCAINE 1% SDV 5 ML VIAL DILUENT ONE (11:01)
[2024-12-27] MEDS: RALTEGRAVIR 400 MG TAB PO ONE (11:03)
[2024-12-27] MEDS: ONDANSETRON 4MG TAB PO ONE (11:03)
== END 2024-12-27 15:20 | disposition home or self-care (01) ==
LOC: M ED 02:52
DX: T76.21XA Adult sexual abuse, suspected, initial encounter (principal); K21.9 Gastro-esophageal reflux disease without esophagitis; G47.33 Obstructive sleep apnea (adult) (pediatric); J45.909 Unspecified asthma, uncomplicated; F31.9 Bipolar disorder, unspecified; F10.10 Alcohol abuse, uncomplicated; Z23 Encounter for immunization; Z88.1 Allergy status to other antibiotic agents; Z88.2 Allergy status to sulfonamides; Z88.6 Allergy status to analgesic agent; Z88.8 Allergy status to other drugs, medicaments and biological substances; Z79.51 Long term (current) use of inhaled steroids; Z79.899 Other long term (current) drug therapy
CPT/HCPCS: 80053; 85025; 86706; 86780; 86803; 87340; 87389; 87661; 87810; 87850; 90471; 90472; 90715; 90746; 96372; 99283; J0696

== ENCOUNTER → 2025-01-25 | Outpatient (REF) | payer MEDICAID ==
[~2025-01-25] MED LIST changes: +EMTR1TAB16 PO; +LEVO1TAB39 PO; +RALT40TA PO; -RALTEGRAVIR 400 MG TAB PO SCH
[2025-01-25 14:01] LABS: APPEARANCE, URINE TURBID (CLEAR); BACTERIA, URINE AUTO 1+ (NEGATIVE); BILIRUBIN, URINE AUTO NEGATIVE (NEGATIVE); BLOOD, URINE BLOOD NEGATIVE (NEGATIVE); GLUCOSE, URINE (UA) AUTO NEGATIVE (NEGATIVE); KETONE, URINE AUTO TRACE mg/dL (NEGATIVE); LEUKOCYTE ESTERASE, URINE AUTO NEGATIVE (NEGATIVE); MUCUS, URINE SMALL (NEGATIVE); NITRITE, URINE AUTO NEGATIVE (NEGATIVE); PROTEIN, URINE AUTO 1+ mg/dL (NEGATIVE); RBC, URINE AUTO 0 /HPF (0-3); SPECIFIC GRAVITY URINE AUTO 1.031 (1.002-1.035); SQUAMOUS EPITHELIAL CELL UR AU 6 /HPF (0-6); UROBILINOGEN, URINE AUTO 2.0 mg/dL (0.0-2.0); WBC, URINE AUTO 4 /HPF (0-3)
[2025-01-25 14:59] LABS: Trichomonas vaginalis (AMP) NOT DETECTED (NEGATIVE)
[2025-01-25 15:23] LABS: GC DNA AMPLIFICATION NEGATIVE (NEGATIVE)
== END ==
LOC: M SFHCPLAZ 12:49
PROVIDERS: ATTEND Internal Medicine Infectious Disease
DX: R35.0 Frequency of micturition (principal); Z11.3 Encounter for screening for infections with a predominantly sexual mode of transmission

== ENCOUNTER → 2025-03-09 | Outpatient (CLI) | payer MEDICAID ==
[~2025-03-09] MED LIST changes: +CARB15DR25 AU; -CARBOT AU
== END ==
LOC: M WHC 16:39
PROVIDERS: ATTEND Nurse Practitioner Family
DX: Z12.31 Encounter for screening mammogram for malignant neoplasm of breast (principal)